=== PATIENT | female | born 1980 | race Caucasian/White ===

== ENCOUNTER 2017-03-27 15:30 | Outpatient (CLI) | payer SELFPAY | END 2017-03-27 15:45 | disposition home or self-care (01) | LOC: RT.N 15:30 | PROVIDERS: ATTEND Family Medicine | DX: R00.2 Palpitations (principal) | CPT/HCPCS: 93005 ==

== ENCOUNTER 2017-10-23 10:22 | Emergency (ER) | payer SELFPAY ==
[2017-10-23 11:26] LABS: BASOPHILS % (AUTO) 0.5 %; EOSINOPHILS % (AUTO) 0.1 %; HGB - HEMOGLOBIN 14.9 g/dL (12.0-16.0); LYMPHOCYTES # (AUTO) 0.5 10^3/uL (1.5-3.5); LYMPHOCYTES % (AUTO) 9.2 %; MEAN CORPUSCULAR HEMOGLOBIN 34.7 pg (27.0-31.0); MEAN CORPUSCULAR HGB CONC 33.8 g/dL (32.0-36.0); MEAN CORPUSCULAR VOLUME 102.7 fL (81.0-99.0); MEAN PLATELET VOLUME 7.4 fL (7.9-10.8); MONOCYTES # (AUTO) 0.3 10^3/uL (0.0-1.0); MONOCYTES % (AUTO) 5.8 %; NEUTROPHILS # (AUTO) 4.9 10^3/uL (1.5-6.6); NEUTROPHILS % (AUTO) 84.4 %; PLT - PLATELET COUNT 211 10^3/uL (130-450); RED BLOOD COUNT 4.28 10^6/uL (4.20-5.40); RED CELL DISTRIBUTION WIDTH 13.4 % (12.0-15.0); WHITE BLOOD COUNT 5.8 x10^3/uL (4.8-10.8)
[2017-10-23 11:43] LABS: ALBUMIN 4.7 g/dL (3.2-5.5); ALBUMIN/GLOBULIN RATIO 1.5 (1.0-2.2); CALCIUM 8.3 mg/dL (8.5-10.3); CREATININE 0.5 mg/dL (0.4-1.0); TOTAL PROTEIN 7.9 g/dL (6.7-8.2)
[2017-10-23 11:54] LABS: MUDS CUTOFF CONCENTRATIONS CUTOFF CONC BELOW:
[2017-10-23 12:00] LABS: BILIRUBIN,URINE NEGATIVE (NEGATIVE); GLUCOSE, URINE (UA) NEGATIVE (NEGATIVE); KETONES,URINE (UA) 40 mg/dL (NEGATIVE); LEUKOCYTE ESTERASE, URINE NEGATIVE (NEGATIVE); NITRITE,URINE NEGATIVE (NEGATIVE); OCCULT BLOOD,URINE SMALL (NEGATIVE); PH,URINE 5.5 PH (5.0-7.5); PROTEIN,URINE NEGATIVE (NEGATIVE); UROBILINOGEN,URINE 0.2 (NORMAL) E.U./dL (NORMAL)
[2017-10-23 12:05] LABS: CLARITY,URINE CLEAR (CLEAR); HCG UR QUAL NEGATIVE
[2017-10-23 12:11] LABS: AMPHETAMINE SCREEN,URINE NEGATIVE (NEGATIVE); BENZODIAZEPINES SCREEN, URINE NEGATIVE (NEGATIVE); COCAINE SCREEN URINE NEGATIVE (NEGATIVE); METHADONE SCREEN, URINE NEGATIVE (NEGATIVE); METHAMPHETAMINES SCREEN, URINE NEGATIVE (NEGATIVE); OPIATE SCREEN, URINE NEGATIVE (NEGATIVE); OXYCODONE SCREEN, URINE NEGATIVE (NEGATIVE); PROPOXYPHENE SCREEN, URINE NEGATIVE (NEGATIVE); TRICYCLIC ANTIDEPRESSANT,URINE NEGATIVE (NEGATIVE)
[2017-10-23 12:17] LABS: BACTERIA,URINE Few /HPF (None Seen); RBC,URINE 0-5 /HPF (0-5); SQUAMOUS EPITHELIAL CELL,UR MANY Squamous (<= Few)
[2017-10-23] MEDS ORDERED: THIAMINE INJ 100 MG in SODIUM CHLORIDE 0.9% 50 ML IV STA (12:25)
[2017-10-23] MEDS ORDERED: D5NS W/20 MEQ KCL 1,000 ML IV STA (12:25)
[2017-10-23] MEDS ORDERED: MAGNESIUM SULFATE 2 GRAM 2 GM/50 ML BAG IV ONE (12:25)
[2017-10-23] MEDS ORDERED: LORazepam 2 MG/ML VIAL IVP STA (12:25)
--- NOTE | 2017-10-23 12:27 | ED Physician Documentation ---
History of Present Illness - Stated complaint Stated Complaint: SOA - Chief complaint Chief Complaint: Resp - History obtained from History obtained from: Patient, Family () - History of Present Illness Timing: Today (37-year-old woman has been drinking heavily in long time. She drinks about 9-10 tall boy beers a night. She has been trying to cut back to drink a little heavier than normal yesterday and today feels very weak and dizzy and shaky and chilled. She denies any pain or vomiting. She has never been treated for alcoholism.) Review of Systems Ten Systems: 10 systems reviewed and negative Constitutional: reports: Chills, Fatigue. denies: Fever Throat: denies: Dental pain / toothache, Sore throat Cardiac: denies: Chest pain / pressure, Palpitations Respiratory: denies: Dyspnea, Cough PD PAST MEDICAL HISTORY - Past Medical History Past Medical History: No - Past Surgical History Past Surgical History: No - Present Medications Home Medications: Ambulatory Orders Medication Instructions Recorded Confirmed Citalopram [CeleXA] 10 mg PO DAILY 10/23/17 10/23/17 - Allergies Allergies/Adverse Reactions: Allergies Allergy/AdvReac Type Severity Reaction Status Date / Time No Known Drug Allergies Allergy Verified 10/23/17 10:31 - Social History Does the pt smoke?: Yes Smoking Status: Current some day smoker Does the pt drink ETOH?: Yes Does the pt have substance abuse?: No - Family History Family history: reports: Non contributory - Immunizations Immunizations are current?: Yes PD ED PE NORMAL - Vitals Vital signs reviewed: Yes - General General: Alert and oriented X 3, Other (Despite having alcohol level of 180, she is actually quite shaky and hypervigilant.) - HEENT HEENT: PERRL, EOMI - Neck Neck: Supple, no meningeal sign, No bony TTP - Cardiac Cardiac: RRR, No murmur - Respiratory Respiratory: No respiratory distress, Clear bilaterally - Abdomen Abdomen: Normal bowel sounds, Soft, Non tender - Back Back: No CVA TTP, No spinal TTP - Derm Derm: Normal color, Warm and dry - Extremities Extremities: No edema, No calf tenderness / cord - Neuro Neuro: Alert and oriented X 3, Normal speech Results - Vitals Vitals: Vital Signs - 24 hr 10/23/17 10:24 Temperature 35.5 C L Heart Rate 78 Respiratory 16 Rate Blood Pressure 123/65 O2 Saturation 99 Oxygen O2 Source Room air - Labs Labs: Laboratory Tests 10/23/17 10/23/17 10/23/17 11:00 11:00 11:17 WBC RBC Hgb Hct MCV MCH MCHC RDW Plt Count MPV Neut # Lymph # [place] # Eos # Baso # Absolute Nucleated RBC Nucleated RBC % VBG pH VBG pCO2 VBG pO2 VBG HCO3 VBG Total CO2 VBG O2 Saturation VBG Base Excess Sodium 135 Potassium 3.8 Chloride 101 Carbon Dioxide 17 L Anion Gap 17.0 H BUN 11 Creatinine 0.5 Estimated GFR (MDRD) 140 Glucose 68 L Calcium 8.3 L Total Bilirubin 1.0 AST 191 H ALT 154 H Alkaline Phosphatase 50 Total Protein 7.9 Albumin 4.7 Globulin 3.2 Albumin/Globulin Ratio 1.5 Lipase 25 Urine Color YELLOW Urine Clarity CLEAR Urine pH 5.5 Ur Specific [place] 1.025 Urine Protein NEGATIVE Urine Glucose (UA) NEGATIVE Urine Ketones 40 H Urine Occult Blood SMALL H Urine Nitrite NEGATIVE Urine Bilirubin NEGATIVE Urine Urobilinogen 0.2 (NORMAL) Ur Leukocyte Esterase NEGATIVE Urine RBC 0-5 Urine WBC 0-3 Ur Squamous Epith Cells MANY Squamous H Urine Bacteria Few Ur Microscopic Review INDICATED Urine Culture Comments NOT INDICATED Urine HCG, Qual NEGATIVE Urine Opiates Screen NEGATIVE Ur Oxycodone Screen NEGATIVE Urine Methadone Screen NEGATIVE Ur Propoxyphene Screen NEGATIVE Ur Barbiturates Screen NEGATIVE Ur Tricyclics Screen NEGATIVE Ur Phencyclidine Scrn NEGATIVE Ur Amphetamine Screen NEGATIVE U Methamphetamines Scrn NEGATIVE U Benzodiazepines Scrn NEGATIVE Urine Cocaine Screen NEGATIVE U Cannabinoids Screen POSITIVE H Ethyl Alcohol 184.6 Serum Ketones 10/23/17 10/23/17 10/23/17 11:17 11:17 12:44 WBC 5.8 RBC 4.28 Hgb 14.9 Hct 44.0 MCV 102.7 H MCH 34.7 H MCHC 33.8 RDW 13.4 Plt Count 211 MPV 7.4 L Neut # 4.9 Lymph # 0.5 L [place] # 0.3 Eos # 0.0 Baso # 0.0 Absolute Nucleated RBC 0.00 Nucleated RBC % 0.0 VBG pH 7.390 VBG pCO2 31.4 L VBG pO2 73.7 H VBG HCO3 18.6 L VBG Total CO2 19.5 L VBG O2 Saturation 93.9 H VBG Base Excess -5.2 L Sodium Potassium Chloride Carbon Dioxide Anion Gap BUN Creatinine Estimated GFR (MDRD) Glucose Calcium Total Bilirubin AST ALT Alkaline Phosphatase Total Protein Albumin Globulin Albumin/Globulin Ratio Lipase Urine Color Urine Clarity Urine pH Ur Specific [place] Urine Protein Urine Glucose (UA) Urine Ketones Urine Occult Blood Urine Nitrite Urine Bilirubin Urine Urobilinogen Ur Leukocyte Esterase Urine RBC Urine WBC Ur Squamous Epith Cells Urine Bacteria Ur Microscopic Review Urine Culture Comments Urine HCG, Qual Urine Opiates Screen Ur Oxycodone Screen Urine Methadone Screen Ur Propoxyphene Screen Ur Barbiturates Screen Ur Tricyclics Screen Ur Phencyclidine Scrn Ur Amphetamine Screen U Methamphetamines Scrn U Benzodiazepines Scrn Urine Cocaine Screen U Cannabinoids Screen Ethyl Alcohol Serum Ketones NEGATIVE PD MEDICAL DECISION MAKING - ED course ED course: 37-year-old woman presents in modest alcohol withdrawal with a measurable alcohol level. She was much more comfortable calm after IV fluids and 2 mg of Ativan. With the help of the manager social responsibility, we arranged for a bed at [facility] today and her will drive her there. Departure - Departure Disposition: 01 Home, Self Care Clinical Impression: Alcohol withdrawal Condition: Good Record reviewed to determine appropriate education?: Yes Instructions: ED Withdrawal Alcohol Comments: Go directly to the [facility] detox facility as we have arranged.
[2017-10-23] MEDS ORDERED: THIAMINE INJ 100 MG in SODIUM CHLORIDE 0.9% 50 ML IV SCH (12:43)
[2017-10-23 12:50] LABS: VBG PCO2 31.4 mmHg (41-51); VBG PH 7.39 (7.31-7.41)
[2017-10-23 12:51] LABS: VBG BASE EXCESS -5.2 mmol/L (-2 - +2); VBG PO2 73.7 mmHg (25-47); VBG TOTAL CO2 19.5 mmol/L (24-29)
[2017-10-23 15:06] VITALS: BP 117/81
== END 2017-10-23 16:10 | disposition home or self-care (01) ==
LOC: ED 10:22
DX: F10.239 Alcohol dependence with withdrawal, unspecified (principal); Y90.6 Blood alcohol level of 120-199 mg/100 ml; F17.200 Nicotine dependence, unspecified, uncomplicated
CPT/HCPCS: 36415; 80053; 80306; 80320; 81001; 81025; 82009; 82803; 83690; 85025; 96365; 96368; 96375; 99283; 99284; J2060; J3411; J7040; 81003; 87086

== ENCOUNTER 2018-08-11 12:17 | Emergency (ER) | payer SELFPAY ==
[2018-08-11 12:48] VITALS: BP 114/84
--- NOTE | 2018-08-11 14:46 | ED Physician Documentation ---
History of Present Illness - Stated complaint Stated Complaint: WITHDRAWL/SHAKING - Chief complaint Chief Complaint: MHE - History obtained from History obtained from: Patient - Additonal information Additional information: Patient is a 38-year-old female with history of alcohol and marijuana use presenting with request for medication to accompany her to her crisis center for alcohol detoxification later tonight. Patient has been already arranged and is driving her. Patient reports last drink was approximately 2 hours ago and complains of dry heaving, as well as generalized abdominal pain worse in the epigastric area, but denies fever, hallucinations, headache, difficulty breathing, shakes, actual vomiting, urinary or stool changes. Patient denies other recreational drug use. Patient denies any suicidal or homicidal ideation. Review of Systems Constitutional: denies: Fever Respiratory: denies: Dyspnea PD PAST MEDICAL HISTORY - Past Medical History Psych: Anxiety - Past Surgical History Past Surgical History: No - Present Medications Home Medications: Ambulatory Orders Medication Instructions Recorded Confirmed Citalopram [CeleXA] 10 mg PO DAILY 10/23/17 08/11/18 Lorazepam [Ativan] 1 mg PO TID PRN #15 tablet 10/23/17 08/11/18 hydrOXYzine PAMOATE [Vistaril] 25 mg PO Q6H PRN #15 capsule 10/23/17 08/11/18 chlordiazePOXIDE [Librium] 25 mg PO Q6H #16 capsule 08/11/18 - Allergies Allergies/Adverse Reactions: Allergies Allergy/AdvReac Type Severity Reaction Status Date / Time No Known Drug Allergies Allergy Verified 08/11/18 12:48 - Social History Does the pt smoke?: Yes Smoking Status: Current every day smoker Does the pt drink ETOH?: Yes Does the pt have substance abuse?: No - Immunizations Immunizations are current?: Yes PD ED PE NORMAL - General General: Alert and oriented X 3, No acute distress, Well developed/nourished, Other (Somewhat tearful, non-slurring of words) - HEENT HEENT: Atraumatic, Moist mucous membranes, Pharynx benign - Cardiac Cardiac: RRR, No murmur - Respiratory Respiratory: No respiratory distress, Clear bilaterally - Abdomen Abdomen: Normal bowel sounds, Soft, Non distended. No: Non tender (Mild epigastric discomfort) - Derm Derm: Normal color, Warm and dry, No rash - Extremities Extremities: No deformity - Neuro Neuro: Alert and oriented X 3, No motor deficit, No sensory deficit - Psych Psych: Other (Denies suicidal ideation) Results - Vitals Vitals: Vital Signs - 24 hr 08/11/18 12:40 Temperature 36.1 C L Heart Rate 87 Respiratory 16 Rate Blood Pressure 114/84 H O2 Saturation 97 Oxygen O2 Source Room air PD MEDICAL DECISION MAKING - ED course Complexity details: considered differential, d/w patient ED course: Patient is requesting medication to assist with alcohol withdrawal so that she may attend the [facility] detox program later today. Patient has been waiting for the past several days for a bed opening and has secured one for later today. Patient reports that that she will be monitored completely at this facility and is driving her there. Patient's last drink was several hours ago and she is not experiencing acute withdrawal symptoms such as delirium tremens, seizure activity, or other that would require urgent testing, medication administration, or admission from the ER. Feel that Librium taper is appropriate to dispense at this time. Remainder of physical exam is relatively unremarkable. Do not have concern for suicidality at this time. Feel that she is appropriate to discharge and discussed return precautions, use medications, and appropriate follow-up. Departure - Departure Disposition: 01 Home, Self Care Clinical Impression: Alcoholic intoxication Qualifiers: Complication of substance-induced condition: uncomplicated Qualified Code(s): F10.920 - Alcohol use, unspecified with intoxication, uncomplicated Condition: Good Instructions: ED Alcohol Intoxication Follow-Up: Dino Kidd PA-C [Primary Care Provider] - Within 3 Days Prescriptions: chlordiazePOXIDE [Librium] 25 mg PO Q6H #16 capsule Comments: Please go directly to [facility]. Please follow-up with primary care physician in next 2-3 days. Refrain from alcohol, tobacco, and other recreational drugs. May take Librium while at crisis center and being monitored to help with alcohol withdrawal symptoms. Return to ED sooner if experience withdrawal symptoms, as well as any other concerns.
== END 2018-08-11 15:18 | disposition home or self-care (01) ==
LOC: ED 12:17
DX: F10.920 Alcohol use, unspecified with intoxication, uncomplicated (principal); F12.90 Cannabis use, unspecified, uncomplicated; F17.200 Nicotine dependence, unspecified, uncomplicated
CPT/HCPCS: 99283

== ENCOUNTER 2019-10-11 14:55 | Emergency (ER) | payer OTHER ==
[2019-10-11 16:18] LABS: BASOPHILS % (AUTO) 0.4 %; EOSINOPHILS % (AUTO) 0.5 %; HGB - HEMOGLOBIN 14.2 g/dL (12.0-16.0); LYMPHOCYTES % (AUTO) 17.6 %; MEAN CORPUSCULAR HEMOGLOBIN 34.6 pg (27.0-31.0); MEAN CORPUSCULAR HGB CONC 34.7 g/dL (32.0-36.0); MEAN CORPUSCULAR VOLUME 99.8 fL (81.0-99.0); MEAN PLATELET VOLUME 9.9 fL (7.9-10.8); MONOCYTES # (AUTO) 0.6 10^3/uL (0.0-1.0); MONOCYTES % (AUTO) 11.4 %; NEUTROPHILS # (AUTO) 3.9 10^3/uL (1.5-6.6); NEUTROPHILS % (AUTO) 69.7 %; PLT - PLATELET COUNT 173 10^3/uL (130-450); RED CELL DISTRIBUTION WIDTH 12.5 % (12.0-15.0); WHITE BLOOD COUNT 5.6 x10^3/uL (4.8-10.8)
[2019-10-11 16:31] LABS: ALBUMIN 4.9 g/dL (3.2-5.5); ALBUMIN/GLOBULIN RATIO 1.3 (1.0-2.2); CREATININE 0.6 mg/dL (0.4-1.0); TOTAL PROTEIN 8.6 g/dL (6.7-8.2)
--- NOTE | 2019-10-11 17:58 | ED Physician Documentation ---
History of Present Illness - Stated complaint Stated Complaint: ETOH WITHDRAWL - Chief complaint Chief Complaint: Abd Pain - History obtained from History obtained from: Patient (This is a very pleasant 39-year-old woman who presents in alcohol withdrawal requesting help with same. She was in detox last year and actually was sober for several months. Over the last 8 months though she has been drinking heavily, mostly beer. She presents to having had her last drink yesterday and visibly shaking. She denies hallucinations or headache. She is never had a seizure.) Review of Systems Constitutional: reports: Reviewed and negative Nose: reports: Reviewed and negative Throat: reports: Reviewed and negative Cardiac: reports: Reviewed and negative Respiratory: reports: Reviewed and negative PD PAST MEDICAL HISTORY - Past Medical History Psych: Anxiety - Past Surgical History Past Surgical History: No - Present Medications Home Medications: Ambulatory Orders Medication Instructions Recorded Confirmed Citalopram [CeleXA] 10 mg PO DAILY 10/23/17 08/11/18 Lorazepam [Ativan] 1 mg PO TID PRN #15 tablet 10/23/17 08/11/18 hydrOXYzine PAMOATE [Vistaril] 25 mg PO Q6H PRN #15 capsule 10/23/17 08/11/18 chlordiazePOXIDE [Librium] 25 mg PO Q6H #16 capsule 08/11/18 Gabapentin [Neurontin] 300 mg PO TID #60 capsule 10/11/19 Lorazepam [Ativan] 1 mg PO TID PRN #15 tablet 10/11/19 Ondansetron Odt [Zofran] 4 mg TL Q6H PRN #10 tablet 10/11/19 - Allergies Allergies/Adverse Reactions: Allergies Allergy/AdvReac Type Severity Reaction Status Date / Time No Known Drug Allergies Allergy Verified 10/11/19 15:16 - Social History Does the pt smoke?: Yes Smoking Status: Current every day smoker Does the pt drink ETOH?: Yes Does the pt have substance abuse?: No - Immunizations Immunizations are current?: Yes PD ED PE NORMAL - Vitals Vital signs reviewed: Yes - General General: Alert and oriented X 3, No acute distress, Other (Visibly shaky but alert and oriented) - Back Back: No CVA TTP, No spinal TTP - Derm Derm: Normal color, Warm and dry - Neuro Neuro: Alert and oriented X 3, Normal speech Results - Vitals Vitals: Vital Signs - 24 hr 10/11/19 15:17 Temperature 36.5 C Heart Rate 89 Respiratory 16 Rate Blood Pressure 156/110 H O2 Saturation 98 Oxygen O2 Source Room air - Labs Labs: Laboratory Tests 10/11/19 10/11/19 10/11/19 16:10 16:10 16:10 WBC 5.6 RBC 4.10 L Hgb 14.2 Hct 40.9 MCV 99.8 H MCH 34.6 H MCHC 34.7 RDW 12.5 Plt Count 173 MPV 9.9 Neut # (Auto) 3.9 Lymph # (Auto) 1.0 L [place] # (Auto) 0.6 Eos # (Auto) 0.0 Baso # (Auto) 0.0 Absolute Nucleated RBC 0.00 Nucleated RBC % 0.0 Sodium 137 Potassium 3.4 L Chloride 101 Carbon Dioxide 20 L Anion Gap 16.0 H BUN 8 Creatinine 0.6 Estimated GFR (MDRD) 112 Glucose 100 Calcium 10.0 Magnesium 2.0 Total Bilirubin 1.0 AST 92 H ALT 47 Alkaline Phosphatase 92 Total Protein 8.6 H Albumin 4.9 Globulin 3.7 Albumin/Globulin Ratio 1.3 Lipase 38 Ethyl Alcohol < 5.0 PD MEDICAL DECISION MAKING - ED course ED course: She is driving today, she is not intoxicated. She did not want any medications here, and was given prescriptions. Departure - Departure Disposition: 01 Home, Self Care Clinical Impression: Alcohol withdrawal Qualifiers: Complication of substance-induced condition: uncomplicated Qualified Code(s): F10.230 - Alcohol dependence with withdrawal, uncomplicated Condition: Good Record reviewed to determine appropriate education?: Yes Instructions: ED Withdrawal Alcohol Prescriptions: Gabapentin [Neurontin] 300 mg PO TID #60 capsule Lorazepam [Ativan] 1 mg PO TID PRN #15 tablet PRN Reason: Anxiety Ondansetron Odt [Zofran] 4 mg TL Q6H PRN #10 tablet PRN Reason: Nausea / Vomiting Comments: Do not drink or drive with the medications. Return for new or worsening symptoms. Talk with your insurance company tomorrow about options for inpatient treatment
[2019-10-11 18:02] VITALS: BP 151/107
== END 2019-10-11 18:03 | disposition home or self-care (01) ==
LOC: ED 14:55
DX: F10.230 Alcohol dependence with withdrawal, uncomplicated (principal); F17.200 Nicotine dependence, unspecified, uncomplicated
CPT/HCPCS: 36415; 80053; 80320; 83690; 83735; 85025; 99283

== ENCOUNTER 2020-05-15 09:42 | Emergency (ER) | payer SELFPAY ==
[2020-05-15] MEDS ORDERED: DEXAMETHASONE 10 MG/ML VIAL IVP STA (11:00)
[2020-05-15] MEDS ORDERED: FOLIC ACID INJ 1 MG, THIAMINE INJ 100 MG, MAGNESIUM SULFATE 2 GM, MULTIVITAMIN 10 ML in... IV STA ×5 (11:00)
[2020-05-15] MEDS ORDERED: LORazepam 2 MG/ML VIAL IVP STA ×2 (11:00→13:31)
--- NOTE | 2020-05-15 11:02 | ED Physician Documentation ---
History of Present Illness - Stated complaint Stated Complaint: ANXIETY - Chief complaint Chief Complaint: General - History obtained from History obtained from: Patient - History of Present Illness Timing: How many weeks ago (2) - Additonal information Additional information: 39-year-old alcoholic female is decided about 2 weeks ago she was in an attempt to do detox and she has been unsuccessful in doing this at home and she has set up inpatient detox to begin today. She has been asked by the detox center to come to the emergency department for medical clearance and she arrives here this this morning with a history of nausea and vomiting last night and she feels that she is in early withdrawal now. Review of Systems Constitutional: denies: Fever Eyes: denies: Decreased vision Ears: denies: Ear pain Nose: denies: Congestion Throat: denies: Sore throat Cardiac: denies: Chest pain / pressure, Palpitations Respiratory: denies: Dyspnea, Cough GI: reports: Nausea, Vomiting : denies: Dysuria, Frequency Skin: denies: Rash Musculoskeletal: denies: Neck pain, Back pain, Extremity pain PD PAST MEDICAL HISTORY - Past Medical History Cardiovascular: None Respiratory: None Neuro: None Endocrine/Autoimmune: None GI: None WIRE RIGGER: None : None HEENT: None Psych: Anxiety Musculoskeletal: None Derm: None - Past Surgical History Past Surgical History: No - Present Medications Home Medications: Ambulatory Orders Medication Instructions Recorded Confirmed Citalopram [CeleXA] 10 mg PO DAILY 10/23/17 05/15/20 Lorazepam [Ativan] 2 mg PO Q4HR PRN #14 tablet 05/15/20 - Allergies Allergies/Adverse Reactions: Allergies Allergy/AdvReac Type Severity Reaction Status Date / Time No Known Drug Allergies Allergy Verified 05/15/20 09:48 - Social History Does the pt smoke?: Yes Smoking Status: Current every day smoker Does the pt drink ETOH?: Yes ETOH Use: Beer Does the pt have substance abuse?: No - Immunizations Immunizations are current?: Yes - POLST Patient has POLST: No PD ED PE NORMAL - Vitals Vital signs reviewed: Yes (hypertensive ) - General General: Alert and oriented X 3, Well developed/nourished, Other (Appears shaky and is teary-eyed) - HEENT HEENT: Atraumatic, PERRL, EOMI - Neck Neck: Supple, no meningeal sign, No bony TTP - Cardiac Cardiac: No murmur, Other (tachy to 110) - Respiratory Respiratory: No respiratory distress, Clear bilaterally - Abdomen Abdomen: Normal bowel sounds, Soft, Non tender, Non distended, No organomegaly - Back Back: No CVA TTP, No spinal TTP - Derm Derm: Normal color, Warm and dry, No rash - Extremities Extremities: No deformity, No edema - Neuro Neuro: Alert and oriented X 3, ap operator 2-12 intact, No motor deficit, No sensory deficit, Normal speech Eye Opening: Spontaneous Motor: Obeys Commands Verbal: Oriented GCS Score: 15 - Psych Psych: Normal mood, Normal affect Results - Vitals Vitals: Vital Signs - 24 hr 05/15/20 05/15/20 05/15/20 09:46 11:52 13:44 Temperature 36.9 C 37.3 C Heart Rate 100 67 70 Respiratory 22 18 16 Rate Blood Pressure 137/107 H 134/98 H 146/100 H O2 Saturation 98 97 97 Oxygen O2 Source Room air - Labs Labs: Laboratory Tests 05/15/20 05/15/20 05/15/20 11:07 11:07 12:54 WBC 10.5 RBC 4.13 L Hgb 14.0 Hct 41.2 MCV 99.8 H MCH 33.9 H MCHC 34.0 RDW 12.7 Plt Count 184 MPV 9.0 Neut # (Auto) 8.7 H Lymph # (Auto) 1.0 L [place] # (Auto) 0.7 Eos # (Auto) 0.0 Baso # (Auto) 0.0 Absolute Nucleated RBC 0.00 Nucleated RBC % 0.0 Sodium 136 Potassium 3.9 Chloride 99 L Carbon Dioxide 20 L Anion Gap 17.0 H BUN 14 Creatinine 0.6 Estimated GFR (MDRD) 112 Glucose 96 Calcium 9.7 Total Bilirubin 1.1 H AST 49 H ALT 34 Alkaline Phosphatase 59 Total Protein 8.3 H Albumin 4.8 Globulin 3.5 Albumin/Globulin Ratio 1.4 Lipase 51 Urine Color Urine Clarity Urine pH Ur Specific [place] Urine Protein Urine Glucose (UA) Urine Ketones Urine Occult Blood Urine Nitrite Urine Bilirubin Urine Urobilinogen Ur Leukocyte Esterase Ur Microscopic Review Urine Culture Comments Urine HCG, Qual NEGATIVE Nasal Adenovirus (PCR) Nasal B. parapertussis DNA (PCR) Nasal Coronavir 229E PCR Nasal Coronavir HKU1 PCR Nasal Coronavir NL63 PCR Nasal Coronavir OC43 PCR Nasal Enterovir/Rhinovir PCR Nasal Influenza B PCR Nasal Influenza A PCR Nasal Parainfluen 1 PCR Nasal Parainfluen 2 PCR Nasal Parainfluen 3 PCR Nasal Parainfluen 4 PCR Nasal RSV (PCR) Nasal B.pertussis DNA PCR Nasal C.pneumoniae (PCR) Mil Human Metapneumo PCR Nasal M.pneumoniae (PCR) Nasal SARS-CoV-2 (PCR) Urine Opiates Screen Ur Oxycodone Screen Urine Methadone Screen Ur Propoxyphene Screen Ur Barbiturates Screen Ur Tricyclics Screen Ur Phencyclidine Scrn Ur Amphetamine Screen U Methamphetamines Scrn U Benzodiazepines Scrn Urine Cocaine Screen U Cannabinoids Screen Ethyl Alcohol < 5.0 05/15/20 05/15/20 13:00 13:35 WBC RBC Hgb Hct MCV MCH MCHC RDW Plt Count MPV Neut # (Auto) Lymph # (Auto) [place] # (Auto) Eos # (Auto) Baso # (Auto) Absolute Nucleated RBC Nucleated RBC % Sodium Potassium Chloride Carbon Dioxide Anion Gap BUN Creatinine Estimated GFR (MDRD) Glucose Calcium Total Bilirubin AST ALT Alkaline Phosphatase Total Protein Albumin Globulin Albumin/Globulin Ratio Lipase Urine Color YELLOW Urine Clarity CLEAR Urine pH 6.5 Ur Specific [place] 1.010 Urine Protein NEGATIVE Urine Glucose (UA) NEGATIVE Urine Ketones TRACE Urine Occult Blood TRACE-INTA Urine Nitrite NEGATIVE Urine Bilirubin NEGATIVE Urine Urobilinogen 0.2 (NORMAL) Ur Leukocyte Esterase NEGATIVE Ur Microscopic Review NOT INDICATED Urine Culture Comments NOT INDICATED Urine HCG, Qual Nasal Adenovirus (PCR) NOT DETECTED Nasal B. parapertussis DNA (PCR) NOT DETECTED Nasal Coronavir 229E PCR NOT DETECTED Nasal Coronavir HKU1 PCR NOT DETECTED Nasal Coronavir NL63 PCR NOT DETECTED Nasal Coronavir OC43 PCR NOT DETECTED Nasal Enterovir/Rhinovir PCR NOT DETECTED Nasal Influenza B PCR NOT DETECTED Nasal Influenza A PCR NOT DETECTED Nasal Parainfluen 1 PCR NOT DETECTED Nasal Parainfluen 2 PCR NOT DETECTED Nasal Parainfluen 3 PCR NOT DETECTED Nasal Parainfluen 4 PCR NOT DETECTED Nasal RSV (PCR) NOT DETECTED Nasal B.pertussis DNA PCR NOT DETECTED Nasal C.pneumoniae (PCR) NOT DETECTED Mil Human Metapneumo PCR NOT DETECTED Nasal M.pneumoniae (PCR) NOT DETECTED Nasal SARS-CoV-2 (PCR) NOT DETECTED Urine Opiates Screen NEGATIVE Ur Oxycodone Screen NEGATIVE Urine Methadone Screen NEGATIVE Ur Propoxyphene Screen NEGATIVE Ur Barbiturates Screen NEGATIVE Ur Tricyclics Screen NEGATIVE Ur Phencyclidine Scrn NEGATIVE Ur Amphetamine Screen NEGATIVE U Methamphetamines Scrn NEGATIVE U Benzodiazepines Scrn NEGATIVE Urine Cocaine Screen POSITIVE H U Cannabinoids Screen POSITIVE H Ethyl Alcohol PD MEDICAL DECISION MAKING - ED course Complexity details: reviewed old records, reviewed results, re-evaluated patient, considered differential, d/w patient ED course: 39-year-old alcoholic female detoxing from alcohol has an appointment to go see the detox center at [facility] today she is here for medical clearance she is administered a banana bag dexamethasone and Ativan and feels much improved. Departure - Departure Disposition: Home, Self Care Clinical Impression: Alcohol withdrawal Qualifiers: Complication of substance-induced condition: with perceptual disturbance Qualified Code(s): F10.232 - Alcohol dependence with withdrawal with perceptual disturbance Condition: Stable Instructions: ED Withdrawal Alcohol Follow-Up: [facility] [Provider Group] Prescriptions: Lorazepam [Ativan] 2 mg PO Q4HR PRN #14 tablet PRN Reason: withdrawal symptoms Comments: Follow up with [facility] Detox as planned when you leave here. Discharge Date/Time: 05/15/20 13:56
[2020-05-15 11:19] LABS: BASOPHILS % (AUTO) 0.4 %; EOSINOPHILS % (AUTO) 0.1 %; LYMPHOCYTES % (AUTO) 9.3 %; MEAN CORPUSCULAR HEMOGLOBIN 33.9 pg (27.0-31.0); MEAN CORPUSCULAR VOLUME 99.8 fL (81.0-99.0); MONOCYTES # (AUTO) 0.7 10^3/uL (0.0-1.0); MONOCYTES % (AUTO) 6.6 %; NEUTROPHILS # (AUTO) 8.7 10^3/uL (1.5-6.6); NEUTROPHILS % (AUTO) 83.2 %; PLT - PLATELET COUNT 184 10^3/uL (130-450); RED BLOOD COUNT 4.13 10^6/uL (4.20-5.40); RED CELL DISTRIBUTION WIDTH 12.7 % (12.0-15.0); WHITE BLOOD COUNT 10.5 x10^3/uL (4.8-10.8)
[2020-05-15 11:31] LABS: ALBUMIN 4.8 g/dL (3.2-5.5); ALBUMIN/GLOBULIN RATIO 1.4 (1.0-2.2); ALKALINE PHOSPHATASE 59 IU/L (42-121); ALT ALANINE AMINOTRANSFERASE 34 IU/L (10-60); AST ASPARTATE AMINOTRANSFERASE 49 IU/L (10-42); BILIRUBIN,TOTAL 1.1 mg/dL (0.2-1.0); BUN - BLOOD UREA NITROGEN 14 mg/dL (6-20); CALCIUM 9.7 mg/dL (8.5-10.3); CARBON DIOXIDE - CO2 20 mmol/L (21-32); CHLORIDE 99 mmol/L (101-111); CREATININE 0.6 mg/dL (0.4-1.0); GLUCOSE 96 mg/dL (70-100); LIPASE 51 U/L (22-51); SODIUM 136 mmol/L (135-145); TOTAL PROTEIN 8.3 g/dL (6.7-8.2)
[2020-05-15 13:05] LABS: MUDS CUTOFF CONCENTRATIONS CUTOFF CONC BELOW:
[2020-05-15 13:08] LABS: BILIRUBIN,URINE NEGATIVE (NEGATIVE); GLUCOSE, URINE (UA) NEGATIVE (NEGATIVE); KETONES,URINE (UA) TRACE mg/dL (NEGATIVE); LEUKOCYTE ESTERASE, URINE NEGATIVE (NEGATIVE); NITRITE,URINE NEGATIVE (NEGATIVE); OCCULT BLOOD,URINE TRACE-INTA (NEGATIVE); PH,URINE 6.5 PH (5.0-7.5); PROTEIN,URINE NEGATIVE (NEGATIVE); UROBILINOGEN,URINE 0.2 (NORMAL) E.U./dL (NORMAL)
[2020-05-15 13:09] LABS: CLARITY,URINE CLEAR (CLEAR)
[2020-05-15 13:23] LABS: AMPHETAMINE SCREEN,URINE NEGATIVE (NEGATIVE); BENZODIAZEPINES SCREEN, URINE NEGATIVE (NEGATIVE); COCAINE SCREEN URINE POSITIVE (NEGATIVE); METHADONE SCREEN, URINE NEGATIVE (NEGATIVE); METHAMPHETAMINES SCREEN, URINE NEGATIVE (NEGATIVE); OPIATE SCREEN, URINE NEGATIVE (NEGATIVE); OXYCODONE SCREEN, URINE NEGATIVE (NEGATIVE); PROPOXYPHENE SCREEN, URINE NEGATIVE (NEGATIVE); TRICYCLIC ANTIDEPRESSANT,URINE NEGATIVE (NEGATIVE)
[2020-05-15 13:37] LABS: HCG UR QUAL NEGATIVE
[2020-05-15 13:45] VITALS: BP 146/100
[2020-05-15 14:45] LABS: C. PNEUMONIAE- RESP PCR PANEL NOT DETECTED
== END 2020-05-15 13:56 | disposition home or self-care (01) ==
LOC: ED 09:42
DX: Z02.2 Encounter for examination for admission to residential institution (principal); F10.232 Alcohol dependence with withdrawal with perceptual disturbance; F17.200 Nicotine dependence, unspecified, uncomplicated; Z20.828 Contact with and (suspected) exposure to other viral communicable diseases
CPT/HCPCS: 0202U; 36415; 80053; 80306; 80320; 81003; 81025; 83690; 85025; 96365; 96375; 96376; 99284; J2060; J3411; 81001; 87086

== ENCOUNTER 2020-08-08 08:07 | Emergency (ER) | payer MEDICAID ==
[2020-08-08] MEDS ORDERED: SODIUM CHLORIDE 0.9% 1,000 ML IV STA (08:20)
[2020-08-08] MEDS ORDERED: THIAMINE INJ 100 MG in SODIUM CHLORIDE 0.9% 50 ML IV STA (08:20)
[2020-08-08] MEDS ORDERED: ONDANSETRON 4 MG/2 ML VIAL IVP STA (08:20)
[2020-08-08] MEDS ORDERED: LORazepam 2 MG/ML VIAL IVP STA (08:22)
--- NOTE | 2020-08-08 08:22 | ED Physician Documentation ---
History of Present Illness - Stated complaint Stated Complaint: ALOC - Chief complaint Chief Complaint: General - History obtained from History obtained from: Patient (Last drink 2 days ago, now she is having severe withdrawal. Mild hallucinations, quite shaky, nauseous and diarrhea. 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 : None HEENT: None Psych: Anxiety Musculoskeletal: None Derm: None - Past Surgical History Past Surgical History: No - Present Medications Home Medications: Ambulatory Orders Medication Instructions Recorded Confirmed Citalopram [CeleXA] 10 mg PO DAILY 10/23/17 08/08/20 Lorazepam [Ativan] 2 mg PO TID #9 tablet 08/08/20 traZODone [Desyrel] 50 mg PO HS PRN 08/08/20 08/08/20 - Allergies Allergies/Adverse Reactions: Allergies Allergy/AdvReac Type Severity Reaction Status Date / Time No Known Drug Allergies Allergy Verified 08/08/20 08:09 - Social History Does the pt smoke?: Yes Smoking Status: Current every day smoker Does the pt drink ETOH?: Yes Does the pt have substance abuse?: No - Immunizations Immunizations are current?: Yes - POLST Patient has POLST: No PD ED PE NORMAL - Vitals Vital signs reviewed: Yes - General General: Alert and oriented X 3, Other (shaky, tachycardic) - HEENT HEENT: PERRL, EOMI - Neck Neck: Supple, no meningeal sign, No bony TTP - Cardiac Cardiac: RRR, No murmur - Respiratory Respiratory: No respiratory distress, Clear bilaterally - Abdomen Abdomen: Soft, Non tender - Back Back: No CVA TTP, No spinal TTP - Derm Derm: Normal color, Warm and dry - Extremities Extremities: No edema, No calf tenderness / cord - Neuro Neuro: Alert and oriented X 3, Normal speech Results - Vitals Vitals: Vital Signs - 24 hr 08/08/20 08/08/20 08/08/20 08:10 08:37 10:14 Temperature 36.8 C 36.8 C Heart Rate 122 H 118 H 90 Respiratory 22 21 20 Rate Blood Pressure 169/79 H 163/83 H 135/79 H O2 Saturation 96 99 99 08/08/20 08/08/20 11:07 13:15 Temperature 36.9 C Heart Rate 90 80 Respiratory 18 18 Rate Blood Pressure 143/101 H 134/93 H O2 Saturation 99 99 Oxygen O2 Source Room air - Labs Labs: Laboratory Tests 08/08/20 08/08/20 08/08/20 08:25 08:40 08:40 WBC 13.9 H RBC 3.66 L Hgb 12.9 Hct 37.3 MCV 101.9 H MCH 35.2 H MCHC 34.6 RDW 15.6 H Plt Count 254 MPV 9.4 Neut # (Auto) 10.2 H Lymph # (Auto) 2.4 [place] # (Auto) 1.1 H Eos # (Auto) 0.0 Baso # (Auto) 0.1 Absolute Nucleated RBC 0.00 Nucleated RBC % 0.0 Sodium 137 Potassium 3.4 L Chloride 100 L Carbon Dioxide 18 L Anion Gap 19.0 H BUN 10 Creatinine 0.8 Estimated GFR (MDRD) 80 L Glucose 118 H Calcium 9.3 Total Bilirubin 1.5 H AST 44 H ALT 28 Alkaline Phosphatase 69 Total Protein 8.2 Albumin 4.7 Globulin 3.5 Albumin/Globulin Ratio 1.3 Lipase 22 TSH Urine Color YELLOW Urine Clarity CLEAR Urine pH 5.5 Ur Specific [place] 1.025 Urine Protein NEGATIVE Urine Glucose (UA) NEGATIVE Urine Ketones 15 H Urine Occult Blood TRACE-INTA Urine Nitrite NEGATIVE Urine Bilirubin NEGATIVE Urine Urobilinogen 0.2 (NORMAL) Ur Leukocyte Esterase NEGATIVE Ur Microscopic Review NOT INDICATED Urine Culture Comments NOT INDICATED Urine HCG, Qual NEGATIVE Nasal Adenovirus (PCR) Nasal B. parapertussis DNA (PCR) Nasal Coronavir 229E PCR Nasal Coronavir HKU1 PCR Nasal Coronavir NL63 PCR Nasal Coronavir OC43 PCR Nasal Enterovir/Rhinovir PCR Nasal Influenza B PCR Nasal Influenza A PCR Nasal Parainfluen 1 PCR Nasal Parainfluen 2 PCR Nasal Parainfluen 3 PCR Nasal Parainfluen 4 PCR Nasal RSV (PCR) Nasal B.pertussis DNA PCR Nasal C.pneumoniae (PCR) Mil Human Metapneumo PCR Nasal M.pneumoniae (PCR) Nasal SARS-CoV-2 (PCR) Salicylates < 6.0 Urine Opiates Screen NEGATIVE Ur Oxycodone Screen NEGATIVE Urine Methadone Screen NEGATIVE Ur Propoxyphene Screen NEGATIVE Acetaminophen < 10 L Ur Barbiturates Screen NEGATIVE Ur Tricyclics Screen NEGATIVE Ur Phencyclidine Scrn NEGATIVE Ur Amphetamine Screen NEGATIVE U Methamphetamines Scrn NEGATIVE U Benzodiazepines Scrn POSITIVE H Urine Cocaine Screen NEGATIVE U Cannabinoids Screen POSITIVE H Ethyl Alcohol < 5.0 08/08/20 08/08/20 08:40 09:55 WBC RBC Hgb Hct MCV MCH MCHC RDW Plt Count MPV Neut # (Auto) Lymph # (Auto) [place] # (Auto) Eos # (Auto) Baso # (Auto) Absolute Nucleated RBC Nucleated RBC % Sodium Potassium Chloride Carbon Dioxide Anion Gap BUN Creatinine Estimated GFR (MDRD) Glucose Calcium Total Bilirubin AST ALT Alkaline Phosphatase Total Protein Albumin Globulin Albumin/Globulin Ratio Lipase TSH 3.63 Urine Color Urine Clarity Urine pH Ur Specific [place] Urine Protein Urine Glucose (UA) Urine Ketones Urine Occult Blood Urine Nitrite Urine Bilirubin Urine Urobilinogen Ur Leukocyte Esterase Ur Microscopic Review Urine Culture Comments Urine HCG, Qual Nasal Adenovirus (PCR) NOT DETECTED Nasal B. parapertussis DNA (PCR) NOT DETECTED Nasal Coronavir 229E PCR NOT DETECTED Nasal Coronavir HKU1 PCR NOT DETECTED Nasal Coronavir NL63 PCR NOT DETECTED Nasal Coronavir OC43 PCR NOT DETECTED Nasal Enterovir/Rhinovir PCR NOT DETECTED Nasal Influenza B PCR NOT DETECTED Nasal Influenza A PCR NOT DETECTED Nasal Parainfluen 1 PCR NOT DETECTED Nasal Parainfluen 2 PCR NOT DETECTED Nasal Parainfluen 3 PCR NOT DETECTED Nasal Parainfluen 4 PCR NOT DETECTED Nasal RSV (PCR) NOT DETECTED Nasal B.pertussis DNA PCR NOT DETECTED Nasal C.pneumoniae (PCR) NOT DETECTED Mil Human Metapneumo PCR NOT DETECTED Nasal M.pneumoniae (PCR) NOT DETECTED Nasal SARS-CoV-2 (PCR) NOT DETECTED Salicylates Urine Opiates Screen Ur Oxycodone Screen Urine Methadone Screen Ur Propoxyphene Screen Acetaminophen Ur Barbiturates Screen Ur Tricyclics Screen Ur Phencyclidine Scrn Ur Amphetamine Screen U Methamphetamines Scrn U Benzodiazepines Scrn Urine Cocaine Screen U Cannabinoids Screen Ethyl Alcohol PD MEDICAL DECISION MAKING - ED course ED course: 40-year-old woman presents with alcohol withdrawal. Her symptoms were relatively easy to treat with a milligram of Ativan IV. She is medically stable for detox and other evaluation. Departure - Departure Disposition: 01 Home, Self Care Clinical Impression: Alcohol withdrawal Qualifiers: Complication of substance-induced condition: with perceptual disturbance Qualified Code(s): F10.232 - Alcohol dependence with withdrawal with perceptual disturbance Condition: Stable Record reviewed to determine appropriate education?: Yes Instructions: ED Withdrawal Alcohol Prescriptions: Lorazepam [Ativan] 2 mg PO TID #9 tablet Comments: Prescription sent electronically to [email or web address] in [place]. Go straight to detox after going to the pharmacy. Return if worsening. After getting out of detox follow-up with your primary care physician, next available appointment. She is medically stable for detox admission.
[2020-08-08 08:49] LABS: BASOPHILS # (AUTO) 0.1 10^3/uL (0.0-0.1); BASOPHILS % (AUTO) 0.5 %; EOSINOPHILS % (AUTO) 0.1 %; HCT - HEMATOCRIT 37.3 % (37.0-47.0); HGB - HEMOGLOBIN 12.9 g/dL (12.0-16.0); LYMPHOCYTES # (AUTO) 2.4 10^3/uL (1.5-3.5); LYMPHOCYTES % (AUTO) 17.2 %; MEAN CORPUSCULAR HEMOGLOBIN 35.2 pg (27.0-31.0); MEAN CORPUSCULAR HGB CONC 34.6 g/dL (32.0-36.0); MEAN CORPUSCULAR VOLUME 101.9 fL (81.0-99.0); MEAN PLATELET VOLUME 9.4 fL (7.9-10.8); MONOCYTES # (AUTO) 1.1 10^3/uL (0.0-1.0); MONOCYTES % (AUTO) 8.2 %; NEUTROPHILS # (AUTO) 10.2 10^3/uL (1.5-6.6); NEUTROPHILS % (AUTO) 73.6 %; PLT - PLATELET COUNT 254 10^3/uL (130-450); RED BLOOD COUNT 3.66 10^6/uL (4.20-5.40); RED CELL DISTRIBUTION WIDTH 15.6 % (12.0-15.0); WHITE BLOOD COUNT 13.9 x10^3/uL (4.8-10.8)
[2020-08-08 09:02] LABS: ACETAMINOPHEN < 10 ug/mL (10-30); ALBUMIN 4.7 g/dL (3.2-5.5); ALBUMIN/GLOBULIN RATIO 1.3 (1.0-2.2); ALKALINE PHOSPHATASE 69 IU/L (42-121); ALT ALANINE AMINOTRANSFERASE 28 IU/L (10-60); AST ASPARTATE AMINOTRANSFERASE 44 IU/L (10-42); BILIRUBIN,TOTAL 1.5 mg/dL (0.2-1.0); BUN - BLOOD UREA NITROGEN 10 mg/dL (6-20); CALCIUM 9.3 mg/dL (8.5-10.3); CARBON DIOXIDE - CO2 18 mmol/L (21-32); CHLORIDE 100 mmol/L (101-111); CREATININE 0.8 mg/dL (0.4-1.0); ETOH - ETHANOL < 5.0 mg/dL; GFR - MDRD 80 (>89); GLUCOSE 118 mg/dL (70-100); LIPASE 22 U/L (22-51); POTASSIUM 3.4 mmol/L (3.5-5.0); SALICYLATE < 6.0 mg/dL; SODIUM 137 mmol/L (135-145); TOTAL PROTEIN 8.2 g/dL (6.7-8.2)
[2020-08-08] MEDS ORDERED: POTASSIUM CHLORIDE 20 MEQ TABLET PO STA (09:06)
[2020-08-08 10:11] LABS: MUDS CUTOFF CONCENTRATIONS CUTOFF CONC BELOW:
[2020-08-08 10:15] LABS: BILIRUBIN,URINE NEGATIVE (NEGATIVE); GLUCOSE, URINE (UA) NEGATIVE (NEGATIVE); KETONES,URINE (UA) 15 mg/dL (NEGATIVE); LEUKOCYTE ESTERASE, URINE NEGATIVE (NEGATIVE); NITRITE,URINE NEGATIVE (NEGATIVE); OCCULT BLOOD,URINE TRACE-INTA (NEGATIVE); PH,URINE 5.5 PH (5.0-7.5); PROTEIN,URINE NEGATIVE (NEGATIVE); UROBILINOGEN,URINE 0.2 (NORMAL) E.U./dL (NORMAL)
[2020-08-08 10:17] LABS: CLARITY,URINE CLEAR (CLEAR); HCG UR QUAL NEGATIVE
[2020-08-08 10:25] LABS: AMPHETAMINE SCREEN,URINE NEGATIVE (NEGATIVE); BARBITURATE SCREEN,UR NEGATIVE (NEGATIVE); BENZODIAZEPINES SCREEN, URINE POSITIVE (NEGATIVE); COCAINE SCREEN URINE NEGATIVE (NEGATIVE); METHADONE SCREEN, URINE NEGATIVE (NEGATIVE); METHAMPHETAMINES SCREEN, URINE NEGATIVE (NEGATIVE); OPIATE SCREEN, URINE NEGATIVE (NEGATIVE); OXYCODONE SCREEN, URINE NEGATIVE (NEGATIVE); PROPOXYPHENE SCREEN, URINE NEGATIVE (NEGATIVE); THC CANNABINOID SCREEN, URINE POSITIVE (NEGATIVE); TRICYCLIC ANTIDEPRESSANT,URINE NEGATIVE (NEGATIVE)
[2020-08-08 10:58] LABS: B. PARAPERTUSSIS- RESP PCR PAN NOT DETECTED; B. PERTUSSIS- RESP PCR PANEL NOT DETECTED; C. PNEUMONIAE- RESP PCR PANEL NOT DETECTED; CORONAVIRUS 229E-RESP PCR NOT DETECTED; CORONAVIRUS HKU1-RESP PCR NOT DETECTED; CORONAVIRUS NL63-RESP PCR NOT DETECTED; CORONAVIRUS OC43-RESP PCR NOT DETECTED; HUMAN METAPNEUMOVIRUS NOT DETECTED; INFLUENZA A- RESP PCR PANEL NOT DETECTED; INFLUENZA B - RESP PCR PANEL NOT DETECTED; M. PNEUMONIAE- RESP PCR PANEL NOT DETECTED; PARAINFLUENZA VIRUS 1 NOT DETECTED; PARAINFLUENZA VIRUS 2 NOT DETECTED; PARAINFLUENZA VIRUS 3 NOT DETECTED; PARAINFLUENZA VIRUS 4 NOT DETECTED; RHINOVIRUS/ENTEROVIRUS NOT DETECTED; RSV- RESP PCR PANEL NOT DETECTED; SARS-CoV-2 -RESP PCR PANEL NOT DETECTED
[2020-08-08] MEDS ORDERED: LORazepam 1 MG TABLET PO STA (15:02)
[2020-08-08 15:03] VITALS: BP 144/99
== END 2020-08-08 15:15 | disposition home or self-care (01) ==
LOC: ED 08:07
DX: F10.232 Alcohol dependence with withdrawal with perceptual disturbance (principal); F17.200 Nicotine dependence, unspecified, uncomplicated; Z20.822 Contact with and (suspected) exposure to COVID-19
CPT/HCPCS: 0202U; 36415; 80053; 80306; 80307; 80320; 80329; 81003; 81025; 83690; 84443; 85025; 96365; 96375; 99284; A9270; J2060; J3411; J7040; J8499; 81001; 87086

== ENCOUNTER 2020-11-25 18:03 | Emergency (ER) | payer MEDICAID ==
[2020-11-25 18:12] VITALS: BP 123/90
== END 2020-11-25 18:30 | disposition left against medical advice (07) ==
LOC: ED 18:03
DX: Z53.21 Procedure and treatment not carried out due to patient leaving prior to being seen by health care provider (principal)

== ENCOUNTER 2020-11-28 14:27 | Emergency (ER) | payer MEDICAID ==
[2020-11-28 15:08] LABS: BASOPHILS % (AUTO) 0.6 %; EOSINOPHILS % (AUTO) 0.3 %; HCT - HEMATOCRIT 38.9 % (37.0-47.0); HGB - HEMOGLOBIN 13.9 g/dL (12.0-16.0); MEAN CORPUSCULAR HEMOGLOBIN 34.9 pg (27.0-31.0); MEAN CORPUSCULAR HGB CONC 35.7 g/dL (32.0-36.0); MEAN CORPUSCULAR VOLUME 97.7 fL (81.0-99.0); MEAN PLATELET VOLUME 8.7 fL (7.9-10.8); MONOCYTES # (AUTO) 0.5 10^3/uL (0.0-1.0); NEUTROPHILS # (AUTO) 5.3 10^3/uL (1.5-6.6); NEUTROPHILS % (AUTO) 77.5 %; PLT - PLATELET COUNT 93 10^3/uL (130-450); RED BLOOD COUNT 3.98 10^6/uL (4.20-5.40); RED CELL DISTRIBUTION WIDTH 15.7 % (12.0-15.0); WHITE BLOOD COUNT 6.8 x10^3/uL (4.8-10.8)
[2020-11-28 15:24] LABS: ACETAMINOPHEN < 10 ug/mL (10-30); ALBUMIN 5.4 g/dL (3.2-5.5); ALBUMIN/GLOBULIN RATIO 1.5 (1.0-2.2); ALKALINE PHOSPHATASE 71 IU/L (42-121); ALT ALANINE AMINOTRANSFERASE 67 IU/L (10-60); AST ASPARTATE AMINOTRANSFERASE 168 IU/L (10-42); BUN - BLOOD UREA NITROGEN 8 mg/dL (6-20); CALCIUM 9.5 mg/dL (8.5-10.3); CARBON DIOXIDE - CO2 18 mmol/L (21-32); CHLORIDE 98 mmol/L (101-111); CREATININE 0.7 mg/dL (0.4-1.0); GFR - MDRD 94 (>89); GLUCOSE 80 mg/dL (70-100); LIPASE 34 U/L (22-51); POTASSIUM 3.8 mmol/L (3.5-5.0); SALICYLATE < 6.0 mg/dL; SODIUM 137 mmol/L (135-145); TOTAL PROTEIN 8.9 g/dL (6.7-8.2)
[2020-11-28] MEDS ORDERED: LORazepam 1 MG TABLET PO STA ×2 (15:27→18:49)
--- NOTE | 2020-11-28 15:32 | ED Physician Documentation ---
History of Present Illness - Stated complaint Stated Complaint: ETOH W/D - Chief complaint Chief Complaint: General - History obtained from History obtained from: Patient - History of Present Illness Timing: Today Pain level max: 0 Pain level now: 0 - Additonal information Additional information: Patient is a 40-year-old female Who presents to the emergency department with alcohol withdrawal. She states her last drink was last night. She was attempting to go to detox today. She has never had seizures or hallucinations from alcohol withdrawal. She is not currently . Nothing makes this better or worse. Review of Systems Ten Systems: 10 systems reviewed and negative Constitutional: denies: Fever, Chills Respiratory: denies: Cough GI: reports: Nausea, Vomiting. 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 HEENT: None Psych: Anxiety Musculoskeletal: None Derm: None - Past Surgical History Past Surgical History: No - Present Medications Home Medications: Ambulatory Orders Medication Instructions Recorded Confirmed Citalopram [CeleXA] 40 mg PO DAILY 10/23/17 11/28/20 traZODone [Desyrel] 50 mg PO HS PRN 08/08/20 11/28/20 Albuterol Sulfate [Proair Hfa 2 puffs IH Q4HR PRN 11/28/20 11/28/20 Inhaler] Gabapentin [Neurontin] 300 mg PO TID 11/28/20 11/28/20 hydrOXYzine HCL [Hydroxyzine HCl] 50 mg PO Q8HR PRN 11/28/20 11/28/20 - Allergies Allergies/Adverse Reactions: Allergies Allergy/AdvReac Type Severity Reaction Status Date / Time No Known Drug Allergies Allergy Verified 11/28/20 14:48 - Social History Does the pt smoke?: Yes Smoking Status: Current every day smoker Does the pt drink ETOH?: Yes Does the pt have substance abuse?: No - Immunizations Immunizations are current?: Yes - POLST Patient has POLST: No PD ED PE NORMAL - Vitals Vital signs reviewed: Yes - General General: Alert and oriented X 3, No acute distress - HEENT HEENT: PERRL - Neck Neck: Supple, no meningeal sign - Cardiac Cardiac: RRR, No murmur, Strong equal pulses - Respiratory Respiratory: No respiratory distress, Clear bilaterally - Abdomen Abdomen: Soft, Non tender, Non distended - Derm Derm: Warm and dry - Extremities Extremities: No edema - Neuro Neuro: Alert and oriented X 3 - Psych Psych: Normal mood, Normal affect Results - Vitals Vitals: Vital Signs - 24 hr 11/28/20 11/28/20 11/28/20 14:43 17:59 18:18 Temperature 36.8 C 37.1 C Heart Rate 112 H 83 88 Respiratory 25 H 18 18 Rate Blood Pressure 174/90 H 152/95 H 146/96 H O2 Saturation 97 94 96 11/28/20 20:00 Temperature Heart Rate 93 Respiratory 18 Rate Blood Pressure 143/96 H O2 Saturation 95 Oxygen O2 Source Room air - Labs Labs: Laboratory Tests 11/28/20 11/28/20 11/28/20 15:02 15:02 15:02 WBC 6.8 RBC 3.98 L Hgb 13.9 Hct 38.9 MCV 97.7 MCH 34.9 H MCHC 35.7 RDW 15.7 H Plt Count 93 L MPV 8.7 Neut # (Auto) 5.3 Lymph # (Auto) 1.0 L [place] # (Auto) 0.5 Eos # (Auto) 0.0 Baso # (Auto) 0.0 Absolute Nucleated RBC 0.00 Nucleated RBC % 0.0 PT INR APTT Sodium 137 Potassium 3.8 Chloride 98 L Carbon Dioxide 18 L Anion Gap 21.0 H BUN 8 Creatinine 0.7 Estimated GFR (MDRD) 94 Glucose 80 Calcium 9.5 Total Bilirubin 2.0 H AST 168 H ALT 67 H Alkaline Phosphatase 71 Total Protein 8.9 H Albumin 5.4 Globulin 3.5 Albumin/Globulin Ratio 1.5 Lipase 34 TSH 2.78 Urine Color Urine Clarity Urine pH Ur Specific [place] Urine Protein Urine Glucose (UA) Urine Ketones Urine Occult Blood Urine Nitrite Urine Bilirubin Urine Urobilinogen Ur Leukocyte Esterase Urine RBC Urine WBC Ur Squamous Epith Cells Urine Bacteria Ur Microscopic Review Urine Culture Comments Urine HCG, Qual Nasal Adenovirus (PCR) Nasal B. parapertussis DNA (PCR) Nasal Coronavir 229E PCR Nasal Coronavir HKU1 PCR Nasal Coronavir NL63 PCR Nasal Coronavir OC43 PCR Nasal Enterovir/Rhinovir PCR Nasal Influenza B PCR Nasal Influenza A PCR Nasal Parainfluen 1 PCR Nasal Parainfluen 2 PCR Nasal Parainfluen 3 PCR Nasal Parainfluen 4 PCR Nasal RSV (PCR) Nasal B.pertussis DNA PCR Nasal C.pneumoniae (PCR) Mil Human Metapneumo PCR Nasal M.pneumoniae (PCR) Nasal SARS-CoV-2 (PCR) Salicylates < 6.0 Urine Opiates Screen Ur Oxycodone Screen Urine Methadone Screen Ur Propoxyphene Screen Acetaminophen < 10 L Ur Barbiturates Screen Ur Tricyclics Screen Ur Phencyclidine Scrn Ur Amphetamine Screen U Methamphetamines Scrn U Benzodiazepines Scrn Urine Cocaine Screen U Cannabinoids Screen Ethyl Alcohol 17.0 11/28/20 11/28/20 11/28/20 15:24 18:00 18:05 WBC RBC Hgb Hct MCV MCH MCHC RDW Plt Count MPV Neut # (Auto) Lymph # (Auto) [place] # (Auto) Eos # (Auto) Baso # (Auto) Absolute Nucleated RBC Nucleated RBC % PT 13.5 H INR 1.2 APTT 32.2 Sodium Potassium Chloride Carbon Dioxide Anion Gap BUN Creatinine Estimated GFR (MDRD) Glucose Calcium Total Bilirubin AST ALT Alkaline Phosphatase Total Protein Albumin Globulin Albumin/Globulin Ratio Lipase TSH Urine Color DARK YELLOW Urine Clarity HAZY Urine pH 5.5 Ur Specific [place] >=1.030 H Urine Protein 30 H Urine Glucose (UA) NEGATIVE Urine Ketones >=80 H Urine Occult Blood MODERATE H Urine Nitrite NEGATIVE Urine Bilirubin NEGATIVE Urine Urobilinogen 0.2 (NORMAL) Ur Leukocyte Esterase NEGATIVE Urine RBC 6-10 H Urine WBC 0-3 Ur Squamous Epith Cells MANY Squamous H Urine Bacteria Few Ur Microscopic Review INDICATED Urine Culture Comments NOT INDICATED Urine HCG, Qual NEGATIVE Nasal Adenovirus (PCR) NOT DETECTED Nasal B. parapertussis DNA (PCR) NOT DETECTED Nasal Coronavir 229E PCR NOT DETECTED Nasal Coronavir HKU1 PCR NOT DETECTED Nasal Coronavir NL63 PCR NOT DETECTED Nasal Coronavir OC43 PCR NOT DETECTED Nasal Enterovir/Rhinovir PCR NOT DETECTED Nasal Influenza B PCR NOT DETECTED Nasal Influenza A PCR NOT DETECTED Nasal Parainfluen 1 PCR NOT DETECTED Nasal Parainfluen 2 PCR NOT DETECTED Nasal Parainfluen 3 PCR NOT DETECTED Nasal Parainfluen 4 PCR NOT DETECTED Nasal RSV (PCR) NOT DETECTED Nasal B.pertussis DNA PCR NOT DETECTED Nasal C.pneumoniae (PCR) NOT DETECTED Mil Human Metapneumo PCR NOT DETECTED Nasal M.pneumoniae (PCR) NOT DETECTED Nasal SARS-CoV-2 (PCR) NOT DETECTED Salicylates Urine Opiates Screen NEGATIVE Ur Oxycodone Screen NEGATIVE Urine Methadone Screen NEGATIVE Ur Propoxyphene Screen NEGATIVE Acetaminophen Ur Barbiturates Screen NEGATIVE Ur Tricyclics Screen NEGATIVE Ur Phencyclidine Scrn NEGATIVE Ur Amphetamine Screen NEGATIVE U Methamphetamines Scrn NEGATIVE U Benzodiazepines Scrn POSITIVE H Urine Cocaine Screen POSITIVE H U Cannabinoids Screen POSITIVE H Ethyl Alcohol PD MEDICAL DECISION MAKING - ED course Complexity details: reviewed results, re-evaluated patient, considered differential, d/w patient ED course: Patient feels much better after Ativan. Tachycardia resolved. Nausea resolved. She is accepted to the crisis detox facility in [place]. Patient's will drive her there. Patient counseled regarding signs and symptoms for which I believe and urgent re-evaluation would be necessary. Patient with good understanding of and agreement to plan and is comfortable going home at this time This document was made in part using voice recognition software. While efforts are made to proofread this document, sound alike and grammatical errors may occur. Departure - Departure Disposition: 01 Home, Self Care Clinical Impression: Alcohol withdrawal Qualifiers: Complication of substance-induced condition: uncomplicated Qualified Code(s): F10.230 - Alcohol dependence with withdrawal, uncomplicated Condition: Good Instructions: ED Withdrawal Alcohol Follow-Up: Rebecca Rodriguez DO [Primary Care Provider] - Comments: You are to go directly to [facility] [address] [address]. Phone number is [phone] Take your medications with you. Return if you worsen Discharge Date/Time: 11/28/20 20:24
[2020-11-28 15:35] LABS: INR 1.2 (0.8-1.2); PT - PROTHROMBIN TIME 13.5 secs (9.9-12.6)
[2020-11-28] MEDS ORDERED: LORazepam 2 MG/ML VIAL IM STA (15:41)
[2020-11-28] MEDS ORDERED: ONDANSETRON 4 MG/2 ML VIAL IM STA (15:41)
[2020-11-28 15:42] LABS: PARTIAL THROMBOPLASTIN TIME 32.2 secs (24.9-33.3)
[2020-11-28 18:13] LABS: MUDS CUTOFF CONCENTRATIONS CUTOFF CONC BELOW:
[2020-11-28 18:32] LABS: GLUCOSE, URINE (UA) NEGATIVE (NEGATIVE); KETONES,URINE (UA) >=80 mg/dL (NEGATIVE); LEUKOCYTE ESTERASE, URINE NEGATIVE (NEGATIVE); NITRITE,URINE NEGATIVE (NEGATIVE); OCCULT BLOOD,URINE MODERATE (NEGATIVE); PH,URINE 5.5 PH (5.0-7.5); PROTEIN,URINE 30 mg/dL (NEGATIVE); UROBILINOGEN,URINE 0.2 (NORMAL) E.U./dL (NORMAL)
[2020-11-28 18:37] LABS: BILIRUBIN,URINE NEGATIVE (NEGATIVE); CLARITY,URINE HAZY (CLEAR); HCG UR QUAL NEGATIVE; ICTOTEST,URINE NEGATIVE
[2020-11-28 18:46] LABS: AMPHETAMINE SCREEN,URINE NEGATIVE (NEGATIVE); BARBITURATE SCREEN,UR NEGATIVE (NEGATIVE); BENZODIAZEPINES SCREEN, URINE POSITIVE (NEGATIVE); COCAINE SCREEN URINE POSITIVE (NEGATIVE); METHADONE SCREEN, URINE NEGATIVE (NEGATIVE); METHAMPHETAMINES SCREEN, URINE NEGATIVE (NEGATIVE); OPIATE SCREEN, URINE NEGATIVE (NEGATIVE); OXYCODONE SCREEN, URINE NEGATIVE (NEGATIVE); PROPOXYPHENE SCREEN, URINE NEGATIVE (NEGATIVE); THC CANNABINOID SCREEN, URINE POSITIVE (NEGATIVE); TRICYCLIC ANTIDEPRESSANT,URINE NEGATIVE (NEGATIVE)
[2020-11-28 18:55] LABS: WBC,URINE 0-3 /HPF (0-5)
[2020-11-28 18:56] LABS: BACTERIA,URINE Few /HPF (None Seen); SQUAMOUS EPITHELIAL CELL,UR MANY Squamous (<= Few)
[2020-11-28 19:13] LABS: B. PARAPERTUSSIS- RESP PCR PAN NOT DETECTED; B. PERTUSSIS- RESP PCR PANEL NOT DETECTED; C. PNEUMONIAE- RESP PCR PANEL NOT DETECTED; CORONAVIRUS 229E-RESP PCR NOT DETECTED; CORONAVIRUS HKU1-RESP PCR NOT DETECTED; CORONAVIRUS NL63-RESP PCR NOT DETECTED; CORONAVIRUS OC43-RESP PCR NOT DETECTED; HUMAN METAPNEUMOVIRUS NOT DETECTED; INFLUENZA A- RESP PCR PANEL NOT DETECTED; INFLUENZA B - RESP PCR PANEL NOT DETECTED; M. PNEUMONIAE- RESP PCR PANEL NOT DETECTED; PARAINFLUENZA VIRUS 1 NOT DETECTED; PARAINFLUENZA VIRUS 2 NOT DETECTED; PARAINFLUENZA VIRUS 3 NOT DETECTED; PARAINFLUENZA VIRUS 4 NOT DETECTED; RHINOVIRUS/ENTEROVIRUS NOT DETECTED; RSV- RESP PCR PANEL NOT DETECTED; SARS-CoV-2 -RESP PCR PANEL NOT DETECTED
[2020-11-28 20:24] VITALS: BP 143/96
== END 2020-11-28 20:24 | disposition home or self-care (01) ==
LOC: ED 14:27
DX: F10.230 Alcohol dependence with withdrawal, uncomplicated (principal); Z20.822 Contact with and (suspected) exposure to COVID-19; F17.200 Nicotine dependence, unspecified, uncomplicated
CPT/HCPCS: 0202U; 36415; 80053; 80306; 80307; 80320; 80329; 81001; 81025; 83690; 84443; 85025; 85610; 85730; 96372; 99283; 99284; J2060; J8499; 81003; 87086

== ENCOUNTER 2021-11-23 19:53 | Inpatient (IN) | payer MEDICAID ==
[2021-11-23 21:13] LABS: BASOPHILS % (AUTO) 0.7 %; EOSINOPHILS % (AUTO) 0.3 %; HCT - HEMATOCRIT 38.2 % (37.0-47.0); HGB - HEMOGLOBIN 13.4 g/dL (12.0-16.0); LYMPHOCYTES # (AUTO) 0.9 10^3/uL (1.5-3.5); LYMPHOCYTES % (AUTO) 31.3 %; MEAN CORPUSCULAR HEMOGLOBIN 34.8 pg (27.0-31.0); MEAN CORPUSCULAR HGB CONC 35.1 g/dL (32.0-36.0); MEAN CORPUSCULAR VOLUME 99.2 fL (81.0-99.0); MEAN PLATELET VOLUME 10.3 fL (7.9-10.8); MONOCYTES # (AUTO) 0.3 10^3/uL (0.0-1.0); NEUTROPHILS # (AUTO) 1.7 10^3/uL (1.5-6.6); PLT - PLATELET COUNT 93 10^3/uL (130-450); RED BLOOD COUNT 3.85 10^6/uL (4.20-5.40); RED CELL DISTRIBUTION WIDTH 12.7 % (12.0-15.0)
[2021-11-23 21:38] LABS: ALBUMIN 4.4 g/dL (3.2-5.5); ALBUMIN/GLOBULIN RATIO 1.3 (1.0-2.2); BILIRUBIN,TOTAL 0.8 mg/dL (0.2-1.0); CALCIUM 9.4 mg/dL (8.5-10.3); CREATININE 0.6 mg/dL (0.4-1.0); POTASSIUM 4.6 mmol/L (3.5-5.0); TOTAL PROTEIN 7.9 g/dL (6.7-8.2)
[2021-11-23 22:39] LABS: BILIRUBIN,URINE NEGATIVE (NEGATIVE); GLUCOSE, URINE (UA) NEGATIVE (NEGATIVE); KETONES,URINE (UA) NEGATIVE (NEGATIVE); LEUKOCYTE ESTERASE, URINE NEGATIVE (NEGATIVE); NITRITE,URINE NEGATIVE (NEGATIVE); OCCULT BLOOD,URINE TRACE-INTA (NEGATIVE); PROTEIN,URINE NEGATIVE (NEGATIVE); UROBILINOGEN,URINE 1 (NORMAL) E.U./dL (NORMAL)
[2021-11-23 22:48] LABS: CLARITY,URINE CLEAR (CLEAR); HCG UR QUAL NEGATIVE
[2021-11-23] MEDS ORDERED: SODIUM CHLORIDE 0.9% 1,000 ML IV STA (23:28)
[2021-11-23] MEDS ORDERED: ONDANSETRON 4 MG/2 ML VIAL IVP STA (23:28)
[2021-11-23] MEDS ORDERED: diazePAM INJ 5 MG/ML SYRINGE IVP STA (23:30)
[2021-11-24] MEDS ORDERED: diazePAM INJ 5 MG/ML SYRINGE IVP STA ×3 (00:53→04:56)
--- NOTE | 2021-11-24 01:42 | CT Report ---
PROCEDURE: Abdomen/Pelvis WO INDICATIONS: upper abd pain/vomiting TECHNIQUE: Noncontrast 5 mm thick sections acquired from the diaphragms to the symphysis. 5 mm coronal and sagi ttal reformats were then performed. For radiation dose reduction, the following was used: automated exposure control, adjustment of mA and/or kV according to patient size. COMPARISON: None. FINDINGS: Image quality: Excellent. Lung bases: Unremarkable. Heart: Heart is normal in size. There is a small hiatal hernia. ABDOMEN: Liver:There is diffuse hypoattenuation of the liver consistent with fatty infiltration. Gallbladder: Within normal limits without calcified gallstones. Biliary ducts: No biliary ductal dilatation. Pancreas:No peripancreatic fat stranding or fluid collections. Spleen: Normal in size. Adrenal Glands: No adrenal nodules. Kidneys and Ureters: No hydronephrosis. Stomach and Bowel: Stomach, small bowel loops, and colon are normal in caliber and wall thickness. T he appendix is normal in appearance. Peritoneum: No abnormal intraperitoneal fluid. No free air. Ventral Wall: No hernia. Abdominal Nodes: No retroperitoneal or mesenteric adenopathy by size criteria. Vessels: Aorta and inferior vena cava are normal in size. PELVIS: Pelvic Organs:An IUD appears in appropriate position within the uterus.. Bladder: Unremarkable. Pelvic Nodes: No enlarged lymph nodes. Miscellaneous: No inguinal hernias are seen. Bones: Visualized osseous structures demonstrate no suspicious focal lesions. IMPRESSION: 1. No definite acute intra-abdominal abnormality. Specifically, no CT evidence of pancreatitis or cho lecystitis. No evidence of bowel obstruction. 2. Hepatic steatosis. Reviewed by: Neo Vega MD on 11/24/2021 1:45 AM PDT Approved by: Neo Vega MD on 11/24/2021 1:45 AM PDT Station ID: [id number]
[2021-11-24] MEDS ORDERED: KETOROLAC 30 MG/ML VIAL IVP STA (03:11)
--- NOTE | 2021-11-24 03:24 | ED Physician Documentation ---
PD HPI ABD PAIN - Stated complaint Stated Complaint: ALCOHOL WITHDRAWL - Chief complaint Chief Complaint: Abd Pain - History obtained from History obtained from: Patient - Additional information Additional information: Patient is a 41-year-old female with a history of alcohol abuse presenting for evaluation of Nausea and vomiting, shakiness and anxiety that has been present throughout the afternoon. Patient has a history of heavy drinking with 6-10 beers daily. She reports only having 2 beers today and the last one was around 1400. She has associated upper abdominal pain which has been intermittent over the last week and has a history of pancreatitis. Nothing makes her symptoms better or worse. She did call the detox facility in [place] but they do not have any beds tonight and recommended she call back tomorrow at 9 AM. She was last in rehab a year ago. She denies suicidal or homicidal thoughts. She is wanting help for Her substance abuse. She denies drug use. She denies concern for .She believes she may have had a seizure in the past. Review of Systems Constitutional: denies: Fever Nose: denies: Congestion Cardiac: reports: Chest pain / pressure Respiratory: denies: Dyspnea, Cough GI: reports: Abdominal Pain, Nausea, Vomiting : denies: Dysuria Skin: denies: Rash Musculoskeletal: denies: Back pain Neurologic: reports: Generalized weakness Psychiatric: reports: Anxiety. 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 : None HEENT: None Psych: Anxiety Musculoskeletal: None Derm: None - Past Surgical History Past Surgical History: No - Present Medications Home Medications: Ambulatory Orders Medication Instructions Recorded Confirmed traZODone [Desyrel] 50 mg PO HS PRN 08/08/20 11/24/21 Albuterol Sulfate [Proair Hfa 2 puffs IH Q4HR PRN 11/28/20 11/24/21 Inhaler] Gabapentin [Neurontin] 300 mg PO TID 11/28/20 11/24/21 Citalopram Hydrobromide 40 mg PO DAILY 11/24/21 11/24/21 [Citalopram HBr] Omeprazole 40 mg PO QDAC 11/24/21 11/24/21 Propranolol [Inderal] 40 mg PO DAILY 11/24/21 11/24/21 hydrOXYzine HCL [Hydroxyzine HCl] 25 mg PO TID PRN 11/24/21 11/24/21 methocarbamoL [Robaxin] 500 mg PO QID PRN 11/24/21 11/24/21 - Allergies Allergies/Adverse Reactions: Allergies Allergy/AdvReac Type Severity Reaction Status Date / Time No Known Drug Allergies Allergy Verified 11/23/21 20:06 - Social History Does the pt smoke?: Yes Smoking Status: Current every day smoker Does the pt drink ETOH?: Yes Does the pt have substance abuse?: No - Immunizations Immunizations are current?: Yes - POLST Patient has POLST: No PD ED PE NORMAL - General General: Alert and oriented X 3, No acute distress, Well developed/nourished - HEENT HEENT: Atraumatic. No: Moist mucous membranes (Dry mucous membranes) - Neck Neck: Supple, no meningeal sign - Cardiac Cardiac: RRR, No murmur, Strong equal pulses - Respiratory Respiratory: No respiratory distress, Clear bilaterally - Abdomen Abdomen: Normal bowel sounds, Soft, Non distended, Other (Epigastric and right upper quadrant tenderness). No: Non tender - Back Back: No CVA TTP - Derm Derm: Warm and dry - Extremities Extremities: Other (Tremulous) - Neuro Neuro: Alert and oriented X 3, No motor deficit Results - Vitals Vitals: Vital Signs - 24 hr 11/24/21 11/24/21 11/24/21 00:05 02:00 04:31 Temperature 37.6 C 37.4 C Heart Rate 71 68 81 Respiratory 17 15 20 Rate Blood Pressure 120/98 H 159/89 H 153/109 H O2 Saturation 96 98 98 11/24/21 11/24/21 05:30 06:00 Temperature Heart Rate 74 63 Respiratory 18 16 Rate Blood Pressure 166/96 H O2 Saturation 98 Oxygen O2 Source Room air - EKG (time done) 2009 Rate: Rate (enter#) (63) Rhythm: NSR [place]: Normal Intervals: Other (QTC 461) Ischemia: No: ST elevation c/w ischemia - Labs Labs: Laboratory Tests 11/23/21 11/23/21 11/23/21 20:58 20:58 20:58 WBC 3.0 L RBC 3.85 L Hgb 13.4 Hct 38.2 MCV 99.2 H MCH 34.8 H MCHC 35.1 RDW 12.7 Plt Count 93 L MPV 10.3 Neut # (Auto) 1.7 Lymph # (Auto) 0.9 L [place] # (Auto) 0.3 Eos # (Auto) 0.0 Baso # (Auto) 0.0 Absolute Nucleated RBC 0.00 Nucleated RBC % 0.0 Sodium 139 Potassium 4.6 Chloride 103 Carbon Dioxide 23 Anion Gap 13.0 BUN 7 Creatinine 0.6 Estimated GFR (MDRD) 111 Glucose 112 H Calcium 9.4 Total Bilirubin 0.8 AST 485 H ALT 97 H Alkaline Phosphatase 121 Troponin I High Sens 4.8 Total Protein 7.9 Albumin 4.4 Globulin 3.5 Albumin/Globulin Ratio 1.3 Lipase 68 H Urine Color Urine Clarity Urine pH Ur Specific [place] Urine Protein Urine Glucose (UA) Urine Ketones Urine Occult Blood Urine Nitrite Urine Bilirubin Urine Urobilinogen Ur Leukocyte Esterase Ur Microscopic Review Urine Culture Comments Urine HCG, Qual Ethyl Alcohol SARS-CoV-2 (PCR) 11/23/21 11/23/21 11/24/21 20:58 22:30 03:40 WBC RBC Hgb Hct MCV MCH MCHC RDW Plt Count MPV Neut # (Auto) Lymph # (Auto) [place] # (Auto) Eos # (Auto) Baso # (Auto) Absolute Nucleated RBC Nucleated RBC % Sodium Potassium Chloride Carbon Dioxide Anion Gap BUN Creatinine Estimated GFR (MDRD) Glucose Calcium Total Bilirubin AST ALT Alkaline Phosphatase Troponin I High Sens Total Protein Albumin Globulin Albumin/Globulin Ratio Lipase Urine Color YELLOW Urine Clarity CLEAR Urine pH 6.0 Ur Specific [place] 1.025 Urine Protein NEGATIVE Urine Glucose (UA) NEGATIVE Urine Ketones NEGATIVE Urine Occult Blood TRACE-INTA Urine Nitrite NEGATIVE Urine Bilirubin NEGATIVE Urine Urobilinogen 1 (NORMAL) Ur Leukocyte Esterase NEGATIVE Ur Microscopic Review NOT INDICATED Urine Culture Comments NOT INDICATED Urine HCG, Qual NEGATIVE Ethyl Alcohol 145.2 SARS-CoV-2 (PCR) DETECTED A PD MEDICAL DECISION MAKING - ED course Complexity details: reviewed results, re-evaluated patient, d/w patient ED course: Patient presenting for evaluation of alcohol withdrawal and upper abdominal pain with vomiting. She appears very tremulous. Labs, EKG and imaging were obtained. No signs of ACS. Abdominal testing was benign. Patient did require numerous doses of IV benzodiazepines given her high CIWA scores. Initially there was no ICU bed available and her CIWA was too high for MedSurg but after several doses of Valium it was within the threshold for MedSurg admission and she was excepted. She was incidentally found to have COVID-19 as part of the admission process. She denies any symptoms such as difficulty breathing, coughing. 0327 - Discussed with Dr. Dukes for admission. She agrees to admit the patient but unfortunately there are no ICU beds available. Patient will need to have a CIWA of 20 or less for the floor and her last check was 26. 0545 - CIWA down to 16. Discussed with hospitalist will admit the patient. Patient reports having some wheezing. Has a history of asthma. Breathing treatment has been ordered. - Critical Care Time(min): 42 Time Includes: Direct patient care, Review records, Reassess patient Departure - Departure Disposition: 66 [facility] DC/Xfer Clinical Impression: Alcohol withdrawal, COVID-19 Condition: Good Discharge Date/Time: 11/24/21 08:17
[2021-11-24] MEDS ORDERED: ONDANSETRON 4 MG/2 ML VIAL IVP STA (04:56)
[2021-11-24] MEDS ORDERED: ALBUTEROL NEB 2.5 MG/3 ML INH STA (04:57)
[2021-11-24] MEDS ORDERED: NICOTINE 14 MG PATCH TOP PRN (06:34)
[2021-11-24 06:50] LABS: BASOPHILS % (AUTO) 0.8 %; HCT - HEMATOCRIT 35.4 % (37.0-47.0); HGB - HEMOGLOBIN 12.1 g/dL (12.0-16.0); LYMPHOCYTES # (AUTO) 0.8 10^3/uL (1.5-3.5); LYMPHOCYTES % (AUTO) 28.8 %; MEAN CORPUSCULAR HGB CONC 34.2 g/dL (32.0-36.0); MEAN CORPUSCULAR VOLUME 102.3 fL (81.0-99.0); MEAN PLATELET VOLUME 10.1 fL (7.9-10.8); MONOCYTES # (AUTO) 0.3 10^3/uL (0.0-1.0); MONOCYTES % (AUTO) 10.4 %; NEUTROPHILS # (AUTO) 1.6 10^3/uL (1.5-6.6); NEUTROPHILS % (AUTO) 59.6 %; PLT - PLATELET COUNT 74 10^3/uL (130-450); RED BLOOD COUNT 3.46 10^6/uL (4.20-5.40); RED CELL DISTRIBUTION WIDTH 12.9 % (12.0-15.0); WHITE BLOOD COUNT 2.6 x10^3/uL (4.8-10.8)
[2021-11-24 07:01] LABS: INR 1.2 (0.8-1.2); PT - PROTHROMBIN TIME 13.3 secs (9.9-12.6)
[2021-11-24 07:07] LABS: ALBUMIN/GLOBULIN RATIO 1.3 (1.0-2.2); BILIRUBIN,TOTAL 0.9 mg/dL (0.2-1.0); CALCIUM 8.7 mg/dL (8.5-10.3); CREATININE 0.6 mg/dL (0.4-1.0); MAGNESIUM 1.4 mg/dL (1.7-2.8); POTASSIUM 3.9 mmol/L (3.5-5.0)
[2021-11-24 07:56] LABS: PLATELET ESTIMATE, MANUAL DECREASED (<130,000) (NORMAL); PLATELET MORPHOLOGY NORMAL APPEARANCE (NORMAL); RBC MORPHOLOGY (MULTIPLE) 1+ MACROCYTOSIS (NORMAL); WBC MORPHOLOGY (MULTIPLE) NORMAL APPEARANCE (NORMAL)
[2021-11-24 07:57] LABS: DIFFERENTIAL COMMENT MANUAL=AUTO DIFF
[2021-11-24] MEDS: HYDROmorphone 0.5 MG/0.5 ML SYRINGE IVP PRN ×2 (09:16→21:08)
[2021-11-24] MEDS: chlordiazePOXIDE 25 MG CAPSULE PO SCH ×2 (09:17→16:58)
[2021-11-24] MEDS: SODIUM CHLORIDE FLUSH 0.9% 10 ML SYRINGE IVP SCH ×2 (09:17→15:43)
[2021-11-24] MEDS ORDERED: MULTIVITAMIN 10 ML, THIAMINE INJ 100 MG, FOLIC ACID INJ 1 MG in SODIUM CHLORIDE 0.9% 1,... IV SCH (10:00)
[2021-11-24] MEDS: LORazepam 2 MG/ML VIAL IVP PRN ×3 (10:06→15:42)
[2021-11-24] MEDS: PANTOPRAZOLE 40 MG TABLET PO SCH (10:57)
--- NOTE | 2021-11-24 11:53 | HISTORY & PHYSICAL EXAMINATION ---
Chief Complaint - Chief Complaint Chief Complaint: shaking, vomiting, diaphoresis History of Present Illness - Admitted From Admitted From:: [facility] - History Obtained From Records Reviewed: yes History obtained from: patient - History of Present Illness HPI Comment/Other: 41-year-old female with medical history significant for asthma, anxiety, GERD and alcohol abuse with history of alcohol withdrawal who presented to the ED with complaint of shaking, vomiting and diaphoresis. This started yesterday 11/23/2021 around 3 PM. She normally drinks about 12 cans of beer daily. She last drank beer yesterday afternoon. She drank Melissa light 16 ounces, 4 to 6 cans. The ED her alcohol level was 152. She scored a 32 on a CIWA. As a result she was presented for admission for continued treatment of alcohol withdrawal. She has been to [facility]hab [facility] in July 2021 where she stayed for 42 days. Currently she denies chest pain, abdominal pain, nausea, vomiting, fever or chills. She also denies dyspnea. As part of her work-up for admission she had a COVID-19 test done in the ED which was positive. She denies knowingly being around somebody sick. She is unvaccinated for COVID. History - Past Medical History Cardiovascular: reports: None Respiratory: reports: Asthma Neuro: reports: None Endocrine/Autoimmune: reports: None GI: reports: GERD COLLATERAL SPECIALIST: reports: None : reports: None HEENT: reports: None Psych: reports: Anxiety Musculoskeletal: reports: None Derm: reports: None MRSA Hx?: No Other Past Medical History: Alcohol abuse, Anxiety - Past Surgical History /COLLATERAL SPECIALIST: reports: Other (Vaginal delivery) - Family & Social History Family History Comment/Other: Extensive family history of Diabetes mellitus Social History Notes: She recently resumed smoking cigarettes after giving to her child. She smokes about one quarter of a pack of cigarettes daily. She typically drinks about 12 cans of beer daily. She uses marijuana occasionally. - POLST Patient has POLST: No POLST Status: Full Code Meds/Allgy - Home Medications Home Medications: Ambulatory Orders Medication Instructions Recorded Confirmed Citalopram [CeleXA] 40 mg PO DAILY 10/23/17 11/28/20 traZODone [Desyrel] 50 mg PO HS PRN 08/08/20 11/28/20 Albuterol Sulfate [Proair Hfa 2 puffs IH Q4HR PRN 11/28/20 11/28/20 Inhaler] Gabapentin [Neurontin] 300 mg PO TID 11/28/20 11/28/20 hydrOXYzine HCL [Hydroxyzine HCl] 50 mg PO Q8HR PRN 11/28/20 11/28/20 - Allergies Allergies/Adverse Reactions: Allergies Allergy/AdvReac Type Severity Reaction Status Date / Time No Known Drug Allergies Allergy Verified 11/23/21 20:06 Review of Systems - Constitutional Constitutional: reports: Other (tremulous). denies: Fatigue, Fever, Chills - Eyes Eyes: denies: Pain, Vision loss - Ears, Nose & Throat Ears, Nose & Throat: denies: Ear pain, Sore throat - Cardiovascular Cariovascular: denies: Irregular heart rate, Chest pain, Edema, Lightheadedness, Syncope - Respiratory Respiratory: denies: Cough, Sputum production, Wheezing, SOB at rest - Gastrointestinal Gastrointestinal: reports: Nausea, Vomiting. denies: Abdominal pain, Abdominal distention - Genitourinary Genitourinary: denies: Dysuria, Frequency, Urgency, Hematuria - Musculoskeletal Musculoskeletal: denies: Muscle pain, Back pain, Muscle aches, Stiffness - Integumentary Integumentary: denies: Rash, Pruritis, Lesions, Dryness - Neurological Neurological: denies: General weakness, Focal weakness, Headache - Psychiatric Psychiatric: reports: Depression, Anxiety - Endocrine Endocrine: denies: Polyuria, Polydypsia - Hematologic/Lymphatic Hematologic/Lymphatic: denies: Anemia, Bruising, Petechiae Prior Level of Functionality: She is normally independent of activities of daily living. Exam - Vital Signs Vital Signs: Vital Signs x48h Temp Pulse Pulse Resp BP BP Pulse Ox 11/24/21 08:16 37.4 C 61 19 155/82 H 98 11/24/21 07:36 85 18 140/96 H 97 11/24/21 06:00 63 16 166/96 H 98 11/24/21 05:30 74 18 11/24/21 04:31 37.4 C 81 20 153/109 H 98 - Physical Exam General Appearance: positive: Alert, Moderate distress, Other (Tremulous) Eyes Bilateral: positive: PERRL, EOMI ENT: positive: No signs of dehydration Neck: positive: No JVD, Trachea midline Respiratory: positive: Chest non-tender, No respiratory distress, Breath sounds nml. negative: Wheezes, Rales, Rhonchi Cardiovascular: positive: Regular rate & rhythm, No murmur Abdomen: positive: Non-tender, No organomegaly, Nml bowel sounds, No distention. negative: Guarding, Rebound Back: positive: Nml inspection Skin: positive: Color nml, No rash, Warm, Dry Extremities: positive: Non-tender, Full ROM, Nml appearance, No pedal edema Neurologic/Psychiatric: positive: Oriented x3, Other (Tremulous) Conclusion/Plan - Problem List (1) Alcohol withdrawal Conclusion/Plan: CIWA protocol initiated. Patient receiving banana bag. Librium 25 mg p.o. every 8 hours. (2) COVID-19 Conclusion/Plan: Incidental finding. Patient is asymptomatic. We will hold off on any treatment at the moment. Patient is unvaccinated for COVID-19. - Lab Results Fish Bones: 11/24/21 06:40 11/24/21 06:40 Core Measures - Anticipated LOS I expect patient to be DC'd or transferred within 96 hours.: Yes - DVT/VTE - Prophylaxis VTE/DVT Device ordered at admit?: Yes VTE/DVT Prophylaxis med ordered at admit?: Yes
[2021-11-24] MEDS: ONDANSETRON 4 MG/2 ML VIAL IVP PRN (15:49)
[2021-11-24 16:33] LABS: MUDS CUTOFF CONCENTRATIONS CUTOFF CONC BELOW:
[2021-11-24 16:45] LABS: AMPHETAMINE SCREEN,URINE NEGATIVE (NEGATIVE); BARBITURATE SCREEN,UR NEGATIVE (NEGATIVE); BENZODIAZEPINES SCREEN, URINE POSITIVE (NEGATIVE); COCAINE SCREEN URINE NEGATIVE (NEGATIVE); METHADONE SCREEN, URINE NEGATIVE (NEGATIVE); METHAMPHETAMINES SCREEN, URINE NEGATIVE (NEGATIVE); OPIATE SCREEN, URINE POSITIVE (NEGATIVE); OXYCODONE SCREEN, URINE NEGATIVE (NEGATIVE); PROPOXYPHENE SCREEN, URINE NEGATIVE (NEGATIVE); THC CANNABINOID SCREEN, URINE POSITIVE (NEGATIVE); TRICYCLIC ANTIDEPRESSANT,URINE NEGATIVE (NEGATIVE)
[2021-11-25] MEDS: chlordiazePOXIDE 25 MG CAPSULE PO SCH ×3 (00:42→16:08)
[2021-11-25] MEDS: SODIUM CHLORIDE FLUSH 0.9% 10 ML SYRINGE IVP SCH ×3 (00:43→16:09)
[2021-11-25] MEDS: LORazepam 2 MG/ML VIAL IVP PRN ×5 (00:47→21:14)
[2021-11-25] MEDS: HYDROmorphone 0.5 MG/0.5 ML SYRINGE IVP PRN (05:17)
[2021-11-25] MEDS: PANTOPRAZOLE 40 MG TABLET PO SCH (05:17)
[2021-11-25] MEDS: ONDANSETRON 4 MG/2 ML VIAL IVP PRN ×2 (05:18→12:09)
[2021-11-25 05:30] LABS: ALBUMIN 3.9 g/dL (3.2-5.5); ALBUMIN/GLOBULIN RATIO 1.2 (1.0-2.2); BILIRUBIN,TOTAL 1.1 mg/dL (0.2-1.0); CALCIUM 8.8 mg/dL (8.5-10.3); CREATININE 0.5 mg/dL (0.4-1.0); MAGNESIUM 1.7 mg/dL (1.7-2.8); PHOSPHORUS 3.9 mg/dL (2.5-4.6); POTASSIUM 3.1 mmol/L (3.5-5.0); TOTAL PROTEIN 7.2 g/dL (6.7-8.2)
[2021-11-25] MEDS ORDERED: POTASSIUM CHLORIDE 20 MEQ TABLET PO ONE (08:07)
--- NOTE | 2021-11-25 08:08 | PROVIDER PROGRESS NOTE ---
Assessment/Plan - Problem List (1) Alcohol withdrawal Assessment/Plan: On CIWA protocol Librium 25mg po q8hrs (2) COVID-19 Assessment/Plan: Incidental finding. Patient is asymptomatic. We will hold off on any treatment at the moment. Patient is unvaccinated for COVID-19. - Current Meds Current Meds: Current Medications Generic Name Dose Route Start Last Admin Trade Name Freq PRN Reason Stop Dose Admin Chlordiazepoxide HCl 25 mg 11/24/21 09:00 11/25/21 00:42 Chlordiazepoxide 25 Mg Capsule PO 25 mg Q8H JENISE Administration Hydromorphone HCl 0.5 mg 11/24/21 06:24 11/25/21 05:17 Hydromorphone 0.5 Mg/0.5 Ml Syringe IVP 0.5 mg Q2H PRN Administration Pain 8 to 10 Multivitamins 10 ml/ Thiamine 1,011.2 mls @ 100 mls/hr 11/24/21 10:00 11/24/21 19:24 HCl 100 mg/ Folic Acid 1 mg/ IV Infused Sodium Chloride DAILY JENISE Infusion Lorazepam 2 mg 11/24/21 06:27 11/25/21 05:16 Lorazepam 2 Mg/Ml Vial IVP 2 mg Q30M PRN Administration CIWA >8 Protocol Ondansetron HCl 4 mg 11/24/21 06:24 11/25/21 05:18 Ondansetron 4 Mg/2 Ml Vial IVP 4 mg Q6HR PRN Administration Nausea / Vomiting Pantoprazole Sodium 40 mg 11/24/21 11:00 11/25/21 05:17 Pantoprazole 40 Mg Tablet PO 40 mg QDAC JENISE Administration Sodium Chloride 10 ml 11/24/21 09:00 11/25/21 00:43 Sodium Chloride Flush 0.9% 10 Ml Syringe IVP 10 ml 0100,0900,1700 JENISE Administration - Lab Result Fish Bone Diagrams: 11/24/21 06:40 11/25/21 04:56 - Additional Planning My Orders: My Active Orders 11/24/21 11:00 Pantoprazole [Protonix] 40 mg PO QDAC 11/24/21 Lunch Regular Diet [DIET] 11/25/21 08:07 Potassium Chloride [K-Dur] 40 meq PO ONCE ONE Subjective - Subjective Patient Reports: Other (Resting comfortably in bed at time of exam. She still has a mild tremor. She denied any other complaints.) Objective Vital Signs: Vital Signs - 24 hr 11/24/21 11/24/21 11/24/21 08:16 11:54 15:31 Temperature 37.4 C 36.9 C 37 C Heart Rate [ 61 59 L 75 Brachial] Respiratory 19 17 18 Rate Blood Pressure 155/82 H 157/93 H 144/97 H [Left Brachial artery] O2 Saturation 98 94 95 11/24/21 11/25/21 11/25/21 21:00 00:45 04:52 Temperature 37.0 C 36.9 C 36.9 C Heart Rate [ 67 72 79 Brachial] Respiratory 16 18 18 Rate Blood Pressure 139/82 H 143/86 H 145/97 H [Left Brachial artery] O2 Saturation 93 94 93 Oxygen O2 Source Room air I&O (Last 24 Hrs): Intake and Output Totals x24h 11/23/21 11/24/21 11/25/21 23:59 23:59 23:59 Intake Total 2551.2 Output Total 200 800 Balance 2351.2 -800 General: Alert, Oriented x3, Other (Mildly tremulous) HEENT: PERRLA, EOMI Neck: Supple, No JVD Neuro: Alert, Oriented Times 3, Other (Mildly tremulous) Cardiovascular: Regular rate Respiratory: Chest non-tender, No respiratory distress, Breath sounds nml Abdomen: Normal bowel sounds, Soft Extremities: No clubbing, No cyanosis, No edema, No tenderness/swelling Skin: No rashes, No breakdown, No significant lesion - Results Results: Laboratory Results WBC 2.6 x10^3/uL (4.8-10.8) L 11/24/21 06:40 RBC 3.46 10^6/uL (4.20-5.40) L 11/24/21 06:40 Hgb 12.1 g/dL (12.0-16.0) 11/24/21 06:40 Hct 35.4 % (37.0-47.0) L 11/24/21 06:40 MCV 102.3 fL (81.0-99.0) H 11/24/21 06:40 MCH 35.0 pg (27.0-31.0) H 11/24/21 06:40 MCHC 34.2 g/dL (32.0-36.0) 11/24/21 06:40 RDW 12.9 % (12.0-15.0) 11/24/21 06:40 Plt Count 74 10^3/uL (130-450) L 11/24/21 06:40 MPV 10.1 fL (7.9-10.8) 11/24/21 06:40 Neut # (Auto) 1.6 10^3/uL (1.5-6.6) 11/24/21 06:40 Lymph # (Auto) 0.8 10^3/uL (1.5-3.5) L 11/24/21 06:40 [place] # (Auto) 0.3 10^3/uL (0.0-1.0) 11/24/21 06:40 Eos # (Auto) 0.0 10^3/uL (0.0-0.7) 11/24/21 06:40 Baso # (Auto) 0.0 10^3/uL (0.0-0.1) 11/24/21 06:40 Absolute Nucleated RBC 0.00 x10^3/uL 11/24/21 06:40 Total Counted FREIGHT AGENT 11/24/21 06:40 Band Neuts % (Manual) Not Reportable 11/24/21 06:40 Abnorm Lymph % (Manual) Not Reportable 11/24/21 06:40 Nucleated RBC % 0.0 /100WBC 11/24/21 06:40 Neutrophils # (Manual) Not Reportable 11/24/21 06:40 Lymphocytes # (Manual) Not Reportable 11/24/21 06:40 Monocytes # (Manual) Not Reportable 11/24/21 06:40 Eosinophils # (Manual) Not Reportable 11/24/21 06:40 Basophils # (Manual) Not Reportable 11/24/21 06:40 Differential Comment MANUAL=AUTO DIFF 11/24/21 06:40 WBC Morphology NORMAL APPEARANCE (NORMAL) 11/24/21 06:40 Platelet Estimate DECREASED (<130,000) (NORMAL) 11/24/21 06:40 Platelet Morphology NORMAL APPEARANCE (NORMAL) 11/24/21 06:40 RBC Morph Micro Appear 1+ MACROCYTOSIS (NORMAL) 11/24/21 06:40 PT 13.3 secs (9.9-12.6) H 11/24/21 06:40 INR 1.2 (0.8-1.2) 11/24/21 06:40 Sodium 131 mmol/L (135-145) L 11/25/21 04:56 Potassium 3.1 mmol/L (3.5-5.0) L 11/25/21 04:56 Chloride 96 mmol/L (101-111) L 11/25/21 04:56 Carbon Dioxide 25 mmol/L (21-32) 11/25/21 04:56 Anion Gap 10.0 (6-13) 11/25/21 04:56 BUN 7 mg/dL (6-20) 11/25/21 04:56 Creatinine 0.5 mg/dL (0.4-1.0) 11/25/21 04:56 Estimated GFR (MDRD) 137 (>89) 11/25/21 04:56 Glucose 94 mg/dL (70-100) 11/25/21 04:56 Calcium 8.8 mg/dL (8.5-10.3) 11/25/21 04:56 Phosphorus 3.9 mg/dL (2.5-4.6) 11/25/21 04:56 Magnesium 1.7 mg/dL (1.7-2.8) 11/25/21 04:56 Total Bilirubin 1.1 mg/dL (0.2-1.0) H 11/25/21 04:56 AST 219 IU/L (10-42) H 11/25/21 04:56 ALT 66 IU/L (10-60) H 11/25/21 04:56 Alkaline Phosphatase 100 IU/L (42-121) 11/25/21 04:56 Troponin I High Sens 4.8 ng/L (2.3-14.8) 11/23/21 20:58 Total Protein 7.2 g/dL (6.7-8.2) 11/25/21 04:56 Albumin 3.9 g/dL (3.2-5.5) 11/25/21 04:56 Globulin 3.3 g/dL (2.1-4.2) 11/25/21 04:56 Albumin/Globulin Ratio 1.2 (1.0-2.2) 11/25/21 04:56 Lipase 68 U/L (22-51) H 11/23/21 20:58 Urine Color YELLOW 11/23/21 22:30 Urine Clarity CLEAR (CLEAR) 11/23/21 22:30 Urine pH 6.0 PH (5.0-7.5) 11/23/21 22:30 Ur Specific [place] 1.025 (1.002-1.030) 11/23/21 22:30 Urine Protein NEGATIVE mg/dL (NEGATIVE) 11/23/21 22:30 Urine Glucose (UA) NEGATIVE mg/dL (NEGATIVE) 11/23/21 22:30 Urine Ketones NEGATIVE mg/dL (NEGATIVE) 11/23/21 22:30 Urine Occult Blood TRACE-INTA (NEGATIVE) 11/23/21 22:30 Urine Nitrite NEGATIVE (NEGATIVE) 11/23/21 22:30 Urine Bilirubin NEGATIVE (NEGATIVE) 11/23/21 22:30 Urine Urobilinogen 1 (NORMAL) E.U./dL (NORMAL) 11/23/21 22:30 Ur Leukocyte Esterase NEGATIVE (NEGATIVE) 11/23/21 22:30 Ur Microscopic Review NOT INDICATED 11/23/21 22:30 Urine Culture Comments NOT INDICATED 11/23/21 22:30 Urine HCG, Qual NEGATIVE 11/23/21 22:30 Urine Opiates Screen POSITIVE (NEGATIVE) H 11/24/21 16:20 Ur Oxycodone Screen NEGATIVE (NEGATIVE) 11/24/21 16:20 Urine Methadone Screen NEGATIVE (NEGATIVE) 11/24/21 16:20 Ur Propoxyphene Screen NEGATIVE (NEGATIVE) 11/24/21 16:20 Ur Barbiturates Screen NEGATIVE (NEGATIVE) 11/24/21 16:20 Ur Tricyclics Screen NEGATIVE (NEGATIVE) 11/24/21 16:20 Ur Phencyclidine Scrn NEGATIVE (NEGATIVE) 11/24/21 16:20 Ur Amphetamine Screen NEGATIVE (NEGATIVE) 11/24/21 16:20 U Methamphetamines Scrn NEGATIVE (NEGATIVE) 11/24/21 16:20 U Benzodiazepines Scrn POSITIVE (NEGATIVE) H 11/24/21 16:20 Urine Cocaine Screen NEGATIVE (NEGATIVE) 11/24/21 16:20 U Cannabinoids Screen POSITIVE (NEGATIVE) H 11/24/21 16:20 Ethyl Alcohol 145.2 mg/dL 11/23/21 20:58 SARS-CoV-2 (PCR) DETECTED A 11/24/21 03:40 ABX Reporting Has patient been on IV antibiotics over the past 48 hours?: No
[2021-11-25] MEDS: SODIUM CHLORIDE FLUSH 0.9% 10 ML SYRINGE IVP PRN ×4 (08:37→21:15)
[2021-11-25] MEDS: guaiFENesin 600 MG TABLET PO SCH ×2 (09:54→21:10)
[2021-11-25] MEDS: PRENATAL VITAMIN TABLET PO SCH (12:09)
[2021-11-25] MEDS: PROCHLORPERAZINE 10 MG/2 ML VIAL IVP PRN (18:03)
[2021-11-26] MEDS: chlordiazePOXIDE 25 MG CAPSULE PO SCH ×3 (00:35→20:42)
[2021-11-26] MEDS: HYDROmorphone 0.5 MG/0.5 ML SYRINGE IVP PRN ×5 (00:36→20:47)
[2021-11-26] MEDS: ONDANSETRON 4 MG/2 ML VIAL IVP PRN ×2 (00:36→16:22)
[2021-11-26] MEDS: LORazepam 2 MG/ML VIAL IVP PRN ×5 (00:36→22:12)
[2021-11-26] MEDS: SODIUM CHLORIDE FLUSH 0.9% 10 ML SYRINGE IVP SCH ×3 (00:58→16:22)
[2021-11-26] MEDS: PANTOPRAZOLE 40 MG TABLET PO SCH (05:13)
[2021-11-26 05:18] LABS: ALBUMIN 3.9 g/dL (3.2-5.5); ALBUMIN/GLOBULIN RATIO 1.3 (1.0-2.2); BILIRUBIN,TOTAL 0.8 mg/dL (0.2-1.0); CALCIUM 9.1 mg/dL (8.5-10.3); CREATININE 0.6 mg/dL (0.4-1.0); MAGNESIUM 1.9 mg/dL (1.7-2.8); POTASSIUM 3.5 mmol/L (3.5-5.0)
--- NOTE | 2021-11-26 07:32 | PROVIDER PROGRESS NOTE ---
Assessment/Plan - Problem List (1) Alcohol withdrawal Assessment/Plan: On CIWA protocol Tremor improving Librium 25mg po q12hrs (2) COVID-19 Assessment/Plan: Incidental finding. Patient was asymptomatic but is now wheezing. O2Sats 94% on r/a CXR ordered. WBC 2.6. Likely 2/2 COVID If significant findings on CXR, will start Rocephin and Azithromycin empirically. - Current Meds Current Meds: Current Medications Generic Name Dose Route Start Last Admin Trade Name Freq PRN Reason Stop Dose Admin Chlordiazepoxide HCl 25 mg 11/24/21 09:00 11/26/21 00:35 Chlordiazepoxide 25 Mg Capsule PO 25 mg Q8H JENISE Administration Guaifenesin 600 mg 11/25/21 10:00 11/25/21 21:10 Guaifenesin 600 Mg Tablet PO 600 mg BID JENISE Administration Hydromorphone HCl 0.5 mg 11/24/21 06:24 11/26/21 05:13 Hydromorphone 0.5 Mg/0.5 Ml Syringe IVP 0.5 mg Q2H PRN Administration Pain 8 to 10 Lorazepam 2 mg 11/24/21 06:27 11/26/21 05:12 Lorazepam 2 Mg/Ml Vial IVP 2 mg Q30M PRN Administration CIWA >8 Protocol Ondansetron HCl 4 mg 11/24/21 06:24 11/26/21 00:36 Ondansetron 4 Mg/2 Ml Vial IVP 4 mg Q6HR PRN Administration Nausea / Vomiting Pantoprazole Sodium 40 mg 11/24/21 11:00 11/26/21 05:13 Pantoprazole 40 Mg Tablet PO 40 mg QDAC JENISE Administration Multivit/Folic Acid/Iron 1 tab 11/25/21 12:00 11/25/21 12:09 Vitamin Tablet PO 1 tab DAILYWM JENISE Administration Prochlorperazine Edisylate 10 mg 11/24/21 06:24 11/25/21 18:03 Prochlorperazine 10 Mg/2 Ml Vial IVP 10 mg Q6HR PRN Administration Nausea / Vomiting Sodium Chloride 10 ml 11/24/21 06:24 11/25/21 21:15 Sodium Chloride Flush 0.9% 10 Ml Syringe IVP 10 ml PRN PRN Administration NEEDED PER PROVIDER ORDERS Sodium Chloride 10 ml 11/24/21 09:00 11/26/21 00:58 Sodium Chloride Flush 0.9% 10 Ml Syringe IVP 10 ml 0100,0900,1700 [facility] Administration - Lab Result Fish Bone Diagrams: 11/24/21 06:40 11/26/21 04:54 - Additional Planning My Orders: My Active Orders 11/25/21 10:00 guaiFENesin [Mucinex] 600 mg PO BID Subjective - Subjective Patient Reports: Other (Is resting comfortably in bed at time of exam. Tremor persists but continues to improve daily. She denied any significant complaint. She has mild wheezes on auscultation of lungs.) Objective Vital Signs: Vital Signs - 24 hr 11/25/21 11/25/21 11/25/21 08:45 12:26 15:58 Temperature 37 C 36.8 C 37.1 C Heart Rate [ 80 85 90 Brachial] Respiratory 18 16 16 Rate Blood Pressure 119/84 H 132/88 H 138/96 H [Left Brachial artery] O2 Saturation 94 93 96 11/25/21 11/26/21 11/26/21 20:37 00:24 04:51 Temperature 37.0 C 37.1 C 36.8 C Heart Rate [ 84 95 82 Brachial] Respiratory 20 18 18 Rate Blood Pressure 129/84 H 117/80 102/67 [Left Brachial artery] O2 Saturation 94 95 92 Oxygen O2 Source Room air I&O (Last 24 Hrs): Intake and Output Totals x24h 11/24/21 11/25/21 11/26/21 23:59 23:59 23:59 Intake Total 2551.2 750 Output Total 200 2350 100 Balance 2351.2 -1600 -100 General: Alert, Oriented x3, Other (Mild tremor) HEENT: PERRLA, EOMI Neck: Supple, No JVD Neuro: Alert, Non Focal, Oriented Times 3 Cardiovascular: Regular rate, No murmurs Respiratory: Chest non-tender, No respiratory distress, Wheezes Abdomen: Normal bowel sounds, Soft Extremities: No clubbing, No cyanosis, No edema Skin: No rashes, No breakdown, No significant lesion - Results Results: Laboratory Results WBC 2.6 x10^3/uL (4.8-10.8) L 11/24/21 06:40 RBC 3.46 10^6/uL (4.20-5.40) L 11/24/21 06:40 Hgb 12.1 g/dL (12.0-16.0) 11/24/21 06:40 Hct 35.4 % (37.0-47.0) L 11/24/21 06:40 MCV 102.3 fL (81.0-99.0) H 11/24/21 06:40 MCH 35.0 pg (27.0-31.0) H 11/24/21 06:40 MCHC 34.2 g/dL (32.0-36.0) 11/24/21 06:40 RDW 12.9 % (12.0-15.0) 11/24/21 06:40 Plt Count 74 10^3/uL (130-450) L 11/24/21 06:40 MPV 10.1 fL (7.9-10.8) 11/24/21 06:40 Neut # (Auto) 1.6 10^3/uL (1.5-6.6) 11/24/21 06:40 Lymph # (Auto) 0.8 10^3/uL (1.5-3.5) L 11/24/21 06:40 [place] # (Auto) 0.3 10^3/uL (0.0-1.0) 11/24/21 06:40 Eos # (Auto) 0.0 10^3/uL (0.0-0.7) 11/24/21 06:40 Baso # (Auto) 0.0 10^3/uL (0.0-0.1) 11/24/21 06:40 Absolute Nucleated RBC 0.00 x10^3/uL 11/24/21 06:40 Total Counted ACCOUNT INSTALLATION SPECIALIST 11/24/21 06:40 Band Neuts % (Manual) Not Reportable 11/24/21 06:40 Abnorm Lymph % (Manual) Not Reportable 11/24/21 06:40 Nucleated RBC % 0.0 /100WBC 11/24/21 06:40 Neutrophils # (Manual) Not Reportable 11/24/21 06:40 Lymphocytes # (Manual) Not Reportable 11/24/21 06:40 Monocytes # (Manual) Not Reportable 11/24/21 06:40 Eosinophils # (Manual) Not Reportable 11/24/21 06:40 Basophils # (Manual) Not Reportable 11/24/21 06:40 Differential Comment MANUAL=AUTO DIFF 11/24/21 06:40 WBC Morphology NORMAL APPEARANCE (NORMAL) 11/24/21 06:40 Platelet Estimate DECREASED (<130,000) (NORMAL) 11/24/21 06:40 Platelet Morphology NORMAL APPEARANCE (NORMAL) 11/24/21 06:40 RBC Morph Micro Appear 1+ MACROCYTOSIS (NORMAL) 11/24/21 06:40 PT 13.3 secs (9.9-12.6) H 11/24/21 06:40 INR 1.2 (0.8-1.2) 11/24/21 06:40 Sodium 134 mmol/L (135-145) L 11/26/21 04:54 Potassium 3.5 mmol/L (3.5-5.0) 11/26/21 04:54 Chloride 100 mmol/L (101-111) L 11/26/21 04:54 Carbon Dioxide 25 mmol/L (21-32) 11/26/21 04:54 Anion Gap 9.0 (6-13) 11/26/21 04:54 BUN 9 mg/dL (6-20) 11/26/21 04:54 Creatinine 0.6 mg/dL (0.4-1.0) 11/26/21 04:54 Estimated GFR (MDRD) 111 (>89) 11/26/21 04:54 Glucose 110 mg/dL (70-100) H 11/26/21 04:54 Calcium 9.1 mg/dL (8.5-10.3) 11/26/21 04:54 Phosphorus 3.9 mg/dL (2.5-4.6) 11/25/21 04:56 Magnesium 1.9 mg/dL (1.7-2.8) 11/26/21 04:54 Total Bilirubin 0.8 mg/dL (0.2-1.0) 11/26/21 04:54 AST 136 IU/L (10-42) H 11/26/21 04:54 ALT 52 IU/L (10-60) 11/26/21 04:54 Alkaline Phosphatase 93 IU/L (42-121) 11/26/21 04:54 Troponin I High Sens 4.8 ng/L (2.3-14.8) 11/23/21 20:58 Total Protein 7.0 g/dL (6.7-8.2) 11/26/21 04:54 Albumin 3.9 g/dL (3.2-5.5) 11/26/21 04:54 Globulin 3.1 g/dL (2.1-4.2) 11/26/21 04:54 Albumin/Globulin Ratio 1.3 (1.0-2.2) 11/26/21 04:54 Lipase 68 U/L (22-51) H 11/23/21 20:58 Urine Color YELLOW 11/23/21 22:30 Urine Clarity CLEAR (CLEAR) 11/23/21 22:30 Urine pH 6.0 PH (5.0-7.5) 11/23/21 22:30 Ur Specific [place] 1.025 (1.002-1.030) 11/23/21 22:30 Urine Protein NEGATIVE mg/dL (NEGATIVE) 11/23/21 22:30 Urine Glucose (UA) NEGATIVE mg/dL (NEGATIVE) 11/23/21 22:30 Urine Ketones NEGATIVE mg/dL (NEGATIVE) 11/23/21 22:30 Urine Occult Blood TRACE-INTA (NEGATIVE) 11/23/21 22:30 Urine Nitrite NEGATIVE (NEGATIVE) 11/23/21 22:30 Urine Bilirubin NEGATIVE (NEGATIVE) 11/23/21 22:30 Urine Urobilinogen 1 (NORMAL) E.U./dL (NORMAL) 11/23/21 22:30 Ur Leukocyte Esterase NEGATIVE (NEGATIVE) 11/23/21 22:30 Ur Microscopic Review NOT INDICATED 11/23/21 22:30 Urine Culture Comments NOT INDICATED 11/23/21 22:30 Urine HCG, Qual NEGATIVE 11/23/21 22:30 Urine Opiates Screen POSITIVE (NEGATIVE) H 11/24/21 16:20 Ur Oxycodone Screen NEGATIVE (NEGATIVE) 11/24/21 16:20 Urine Methadone Screen NEGATIVE (NEGATIVE) 11/24/21 16:20 Ur Propoxyphene Screen NEGATIVE (NEGATIVE) 11/24/21 16:20 Ur Barbiturates Screen NEGATIVE (NEGATIVE) 11/24/21 16:20 Ur Tricyclics Screen NEGATIVE (NEGATIVE) 11/24/21 16:20 Ur Phencyclidine Scrn NEGATIVE (NEGATIVE) 11/24/21 16:20 Ur Amphetamine Screen NEGATIVE (NEGATIVE) 11/24/21 16:20 U Methamphetamines Scrn NEGATIVE (NEGATIVE) 11/24/21 16:20 U Benzodiazepines Scrn POSITIVE (NEGATIVE) H 11/24/21 16:20 Urine Cocaine Screen NEGATIVE (NEGATIVE) 11/24/21 16:20 U Cannabinoids Screen POSITIVE (NEGATIVE) H 11/24/21 16:20 Ethyl Alcohol 145.2 mg/dL 11/23/21 20:58 SARS-CoV-2 (PCR) DETECTED A 11/24/21 03:40 ABX Reporting Has patient been on IV antibiotics over the past 48 hours?: No
[2021-11-26] MEDS: guaiFENesin 600 MG TABLET PO SCH ×2 (07:54→20:42)
[2021-11-26] MEDS: PRENATAL VITAMIN TABLET PO SCH (07:55)
[2021-11-26] MEDS: SODIUM CHLORIDE FLUSH 0.9% 10 ML SYRINGE IVP PRN ×3 (07:56→22:12)
--- NOTE | 2021-11-26 11:22 | XRAY Report ---
PROCEDURE: Chest 1 View X-Ray INDICATIONS: wheezing COMMENTS: Covid +, SOB today PRIORS: 09-01-08 TECHNIQUE: One view of the chest was acquired. COMPARISON: None FINDINGS: Surgical changes and devices: None. Lungs and pleura: No pleural effusions or pneumothorax. Lungs are clear. Mediastinum: Mediastinal contours appear normal. Heart size is normal. Bones and chest wall: No suspicious bony lesions. Overlying soft tissues appear unremarkable. IMPRESSION: Normal chest x-ray Reviewed by: Nikko Mcginnis on 11/26/2021 10:21 AM [facility] Approved by: Nikko Mcginnis on 11/26/2021 10:21 AM [facility] Station ID: [id number]
[2021-11-26] MEDS: SENNA 8.6 MG TABLET PO SCH (20:42)
[2021-11-26] MEDS: DOCUSATE SODIUM 250 MG CAPSULE PO SCH (20:43)
[2021-11-26] MEDS: PROCHLORPERAZINE 10 MG/2 ML VIAL IVP PRN (20:47)
[2021-11-27] MEDS: HYDROmorphone 0.5 MG/0.5 ML SYRINGE IVP PRN ×2 (01:19→05:42)
[2021-11-27] MEDS: SODIUM CHLORIDE FLUSH 0.9% 10 ML SYRINGE IVP SCH ×3 (01:21→16:16)
[2021-11-27] MEDS: ONDANSETRON 4 MG/2 ML VIAL IVP PRN ×3 (01:21→17:02)
[2021-11-27] MEDS: LORazepam 2 MG/ML VIAL IVP PRN ×7 (01:21→21:20)
[2021-11-27 05:38] LABS: ALBUMIN 3.8 g/dL (3.2-5.5); ALBUMIN/GLOBULIN RATIO 1.1 (1.0-2.2); BILIRUBIN,TOTAL 0.9 mg/dL (0.2-1.0); CREATININE 0.6 mg/dL (0.4-1.0); MAGNESIUM 1.8 mg/dL (1.7-2.8); POTASSIUM 3.6 mmol/L (3.5-5.0); TOTAL PROTEIN 7.2 g/dL (6.7-8.2)
[2021-11-27] MEDS: PANTOPRAZOLE 40 MG TABLET PO SCH (05:42)
[2021-11-27] MEDS: PRENATAL VITAMIN TABLET PO SCH (07:49)
[2021-11-27] MEDS: guaiFENesin 600 MG TABLET PO SCH ×2 (07:49→21:20)
[2021-11-27] MEDS: DOCUSATE SODIUM 250 MG CAPSULE PO SCH (07:50)
[2021-11-27] MEDS: SENNA 8.6 MG TABLET PO SCH (07:50)
[2021-11-27] MEDS: chlordiazePOXIDE 25 MG CAPSULE PO SCH ×3 (07:50→21:20)
[2021-11-27 08:04] LABS: BASOPHILS % (AUTO) 0.4 %; EOSINOPHILS % (AUTO) 0.7 %; HCT - HEMATOCRIT 36.7 % (37.0-47.0); HGB - HEMOGLOBIN 12.4 g/dL (12.0-16.0); LYMPHOCYTES # (AUTO) 1.2 10^3/uL (1.5-3.5); LYMPHOCYTES % (AUTO) 26.9 %; MEAN CORPUSCULAR HEMOGLOBIN 33.8 pg (27.0-31.0); MEAN CORPUSCULAR HGB CONC 33.8 g/dL (32.0-36.0); MEAN PLATELET VOLUME 12.3 fL (7.9-10.8); MONOCYTES # (AUTO) 0.5 10^3/uL (0.0-1.0); MONOCYTES % (AUTO) 10.3 %; NEUTROPHILS # (AUTO) 2.7 10^3/uL (1.5-6.6); NEUTROPHILS % (AUTO) 61.3 %; NRBC ABSOLUTE COUNT (AUTO) 0.03 x10^3/uL; NUCLEATED RED BLOOD CELLS AUTO 0.7 /100WBC; PLT - PLATELET COUNT 82 10^3/uL (130-450); RED BLOOD COUNT 3.67 10^6/uL (4.20-5.40); RED CELL DISTRIBUTION WIDTH 12.5 % (12.0-15.0); WHITE BLOOD COUNT 4.5 x10^3/uL (4.8-10.8)
--- NOTE | 2021-11-27 08:22 | PROVIDER PROGRESS NOTE ---
Assessment/Plan - Problem List (1) Alcohol withdrawal Assessment/Plan: On CIWA protocol Due to a CIWA score of 8 and 10, persistent tremor and several episodes of anxiety/panic, Librium was increased to 3 times daily On Librium 25mg po q8hrs (2) COVID-19 Assessment/Plan: Incidental finding. Patient was asymptomatic. Despite wheezing CXR done 11/26/21 was normal. O2Sats 97% on r/a WBC 4.5. Likely 2/2 COVID Will continue to hold off on any treatment - Current Meds Current Meds: Current Medications Generic Name Dose Route Start Last Admin Trade Name Freq PRN Reason Stop Dose Admin Chlordiazepoxide HCl 25 mg 11/26/21 21:00 11/27/21 07:50 Chlordiazepoxide 25 Mg Capsule PO 25 mg Q12H JENISE Administration Docusate Sodium 250 - 500 mg 11/26/21 21:00 11/27/21 07:50 Docusate Sodium 250 Mg Capsule PO 250 mg DAILY JENISE Administration Guaifenesin 600 mg 11/25/21 10:00 11/27/21 07:49 Guaifenesin 600 Mg Tablet PO 600 mg BID JENISE Administration Hydromorphone HCl 0.5 mg 11/24/21 06:24 11/27/21 05:42 Hydromorphone 0.5 Mg/0.5 Ml Syringe IVP 0.5 mg Q2H PRN Administration Pain 8 to 10 Lorazepam 2 mg 11/24/21 06:27 11/27/21 07:50 Lorazepam 2 Mg/Ml Vial IVP 2 mg Q30M PRN Administration CIWA >8 Protocol Ondansetron HCl 4 mg 11/24/21 06:24 11/27/21 07:50 Ondansetron 4 Mg/2 Ml Vial IVP 4 mg Q6HR PRN Administration Nausea / Vomiting Pantoprazole Sodium 40 mg 11/24/21 11:00 11/27/21 05:42 Pantoprazole 40 Mg Tablet PO 40 mg QDAC JENISE Administration Multivit/Folic Acid/Iron 1 tab 11/25/21 12:00 11/27/21 07:49 Vitamin Tablet PO 1 tab DAILYWM JENISE Administration Prochlorperazine Edisylate 10 mg 11/24/21 06:24 11/26/21 20:47 Prochlorperazine 10 Mg/2 Ml Vial IVP 10 mg Q6HR PRN Administration Nausea / Vomiting Senna 8.6 - 17.2 mg 11/26/21 21:00 11/27/21 07:50 Senna 8.6 Mg Tablet PO 8.6 mg DAILY JENISE Administration Sodium Chloride 10 ml 11/24/21 06:24 11/26/21 22:12 Sodium Chloride Flush 0.9% 10 Ml Syringe IVP 10 ml PRN PRN Administration NEEDED PER PROVIDER ORDERS Sodium Chloride 10 ml 11/24/21 09:00 11/27/21 07:52 Sodium Chloride Flush 0.9% 10 Ml Syringe IVP 10 ml 0100,0900,1700 JENISE Administration - Lab Result Fish Bone Diagrams: 11/27/21 05:25 11/27/21 05:15 - Additional Planning My Orders: My Active Orders 11/26/21 21:00 chlordiazePOXIDE [Librium] 25 mg PO Q12H 11/28/21 05:00 BMP - BASIC METABOLIC PANEL [CHEM] DAILYLAB CBC - COMP BLD CT W/AUTO DIFF [HEME] DAILYLAB 11/29/21 05:00 BMP - BASIC METABOLIC PANEL [CHEM] DAILYLAB CBC - COMP BLD CT W/AUTO DIFF [HEME] DAILYLAB 11/30/21 05:00 BMP - BASIC METABOLIC PANEL [CHEM] DAILYLAB CBC - COMP BLD CT W/AUTO DIFF [HEME] DAILYLAB 12/01/21 05:00 BMP - BASIC METABOLIC PANEL [CHEM] DAILYLAB CBC - COMP BLD CT W/AUTO DIFF [HEME] DAILYLAB 12/02/21 05:00 BMP - BASIC METABOLIC PANEL [CHEM] DAILYLAB CBC - COMP BLD CT W/AUTO DIFF [HEME] DAILYLAB Subjective - Subjective Patient Reports: Other (Patient continues to be tremulous. She scored 8 and subsequently 10 on the CIWA score today. This is slightly higher than the previous day when she scored 6. She also seemed to have episodes of anxiety. She is wheezy on auscultation but does not appear to be in respiratory distress.) Objective Vital Signs: Vital Signs - 24 hr 11/26/21 11/26/21 11/26/21 11:09 13:10 16:05 Temperature 36.2 C L 36.4 C L Heart Rate [ 99 87 98 Brachial] Respiratory 18 18 19 Rate Blood Pressure 125/83 H 118/78 117/85 H [Left Brachial artery] O2 Saturation 94 95 93 11/26/21 11/27/21 11/27/21 20:38 01:28 05:34 Temperature 36.5 C 37 C 36.5 C Heart Rate [ 95 91 94 Brachial] Respiratory 18 16 16 Rate Blood Pressure 137/82 H 113/73 113/73 [Left Brachial artery] O2 Saturation 94 94 96 11/27/21 07:45 Temperature 36.9 C Heart Rate [ 99 Brachial] Respiratory 20 Rate Blood Pressure 105/71 [Left Brachial artery] O2 Saturation 96 Oxygen O2 Source Room air I&O (Last 24 Hrs): Intake and Output Totals x24h 11/25/21 11/26/21 11/27/21 23:59 23:59 23:59 Intake Total 750 1210 350 Output Total 2350 300 Balance -1600 910 350 Comments/Notes: General: Alert, Oriented x3, Other (Mild tremor) HEENT: PERRLA, EOMI Neck: Supple, No JVD Neuro: Alert, Non Focal, Oriented Times 3 Cardiovascular: Regular rate, No murmurs Respiratory: Chest non-tender, No respiratory distress, Wheezes Abdomen: Normal bowel sounds, Soft Extremities: No clubbing, No cyanosis, No edema Skin: No rashes, No breakdown, No significant lesion - Results Results: Laboratory Results WBC 4.5 x10^3/uL (4.8-10.8) L 11/27/21 05:25 RBC 3.67 10^6/uL (4.20-5.40) L 11/27/21 05:25 Hgb 12.4 g/dL (12.0-16.0) 11/27/21 05:25 Hct 36.7 % (37.0-47.0) L 11/27/21 05:25 MCV 100.0 fL (81.0-99.0) H 11/27/21 05:25 MCH 33.8 pg (27.0-31.0) H 11/27/21 05:25 MCHC 33.8 g/dL (32.0-36.0) 11/27/21 05:25 RDW 12.5 % (12.0-15.0) 11/27/21 05:25 Plt Count 82 10^3/uL (130-450) L 11/27/21 05:25 MPV 12.3 fL (7.9-10.8) H 11/27/21 05:25 Neut # (Auto) 2.7 10^3/uL (1.5-6.6) 11/27/21 05:25 Lymph # (Auto) 1.2 10^3/uL (1.5-3.5) L 11/27/21 05:25 [place] # (Auto) 0.5 10^3/uL (0.0-1.0) 11/27/21 05:25 Eos # (Auto) 0.0 10^3/uL (0.0-0.7) 11/27/21 05:25 Baso # (Auto) 0.0 10^3/uL (0.0-0.1) 11/27/21 05:25 Absolute Nucleated RBC 0.03 x10^3/uL 11/27/21 05:25 Total Counted CHRONIC DISEASE EPIDEMIOLOGIST 11/24/21 06:40 Band Neuts % (Manual) Not Reportable 11/24/21 06:40 Abnorm Lymph % (Manual) Not Reportable 11/24/21 06:40 Nucleated RBC % 0.7 /100WBC 11/27/21 05:25 Neutrophils # (Manual) Not Reportable 11/24/21 06:40 Lymphocytes # (Manual) Not Reportable 11/24/21 06:40 Monocytes # (Manual) Not Reportable 11/24/21 06:40 Eosinophils # (Manual) Not Reportable 11/24/21 06:40 Basophils # (Manual) Not Reportable 11/24/21 06:40 Differential Comment MANUAL=AUTO DIFF 11/24/21 06:40 WBC Morphology NORMAL APPEARANCE (NORMAL) 11/24/21 06:40 Platelet Estimate DECREASED (<130,000) (NORMAL) 11/24/21 06:40 Platelet Morphology NORMAL APPEARANCE (NORMAL) 11/24/21 06:40 RBC Morph Micro Appear 1+ MACROCYTOSIS (NORMAL) 11/24/21 06:40 PT 13.3 secs (9.9-12.6) H 11/24/21 06:40 INR 1.2 (0.8-1.2) 11/24/21 06:40 Sodium 131 mmol/L (135-145) L 11/27/21 05:15 Potassium 3.6 mmol/L (3.5-5.0) 11/27/21 05:15 Chloride 96 mmol/L (101-111) L 11/27/21 05:15 Carbon Dioxide 25 mmol/L (21-32) 11/27/21 05:15 Anion Gap 10.0 (6-13) 11/27/21 05:15 BUN 8 mg/dL (6-20) 11/27/21 05:15 Creatinine 0.6 mg/dL (0.4-1.0) 11/27/21 05:15 Estimated GFR (MDRD) 111 (>89) 11/27/21 05:15 Glucose 110 mg/dL (70-100) H 11/27/21 05:15 Calcium 9.0 mg/dL (8.5-10.3) 11/27/21 05:15 Phosphorus 3.9 mg/dL (2.5-4.6) 11/25/21 04:56 Magnesium 1.8 mg/dL (1.7-2.8) 11/27/21 05:15 Total Bilirubin 0.9 mg/dL (0.2-1.0) 11/27/21 05:15 AST 90 IU/L (10-42) H 11/27/21 05:15 ALT 46 IU/L (10-60) 11/27/21 05:15 Alkaline Phosphatase 88 IU/L (42-121) 11/27/21 05:15 Troponin I High Sens 4.8 ng/L (2.3-14.8) 11/23/21 20:58 Total Protein 7.2 g/dL (6.7-8.2) 11/27/21 05:15 Albumin 3.8 g/dL (3.2-5.5) 11/27/21 05:15 Globulin 3.4 g/dL (2.1-4.2) 11/27/21 05:15 Albumin/Globulin Ratio 1.1 (1.0-2.2) 11/27/21 05:15 Lipase 68 U/L (22-51) H 11/23/21 20:58 Urine Color YELLOW 11/23/21 22:30 Urine Clarity CLEAR (CLEAR) 11/23/21 22:30 Urine pH 6.0 PH (5.0-7.5) 11/23/21 22:30 Ur Specific [place] 1.025 (1.002-1.030) 11/23/21 22:30 Urine Protein NEGATIVE mg/dL (NEGATIVE) 11/23/21 22:30 Urine Glucose (UA) NEGATIVE mg/dL (NEGATIVE) 11/23/21 22:30 Urine Ketones NEGATIVE mg/dL (NEGATIVE) 11/23/21 22:30 Urine Occult Blood TRACE-INTA (NEGATIVE) 11/23/21 22:30 Urine Nitrite NEGATIVE (NEGATIVE) 11/23/21 22:30 Urine Bilirubin NEGATIVE (NEGATIVE) 11/23/21 22:30 Urine Urobilinogen 1 (NORMAL) E.U./dL (NORMAL) 11/23/21 22:30 Ur Leukocyte Esterase NEGATIVE (NEGATIVE) 11/23/21 22:30 Ur Microscopic Review NOT INDICATED 11/23/21 22:30 Urine Culture Comments NOT INDICATED 11/23/21 22:30 Urine HCG, Qual NEGATIVE 11/23/21 22:30 Urine Opiates Screen POSITIVE (NEGATIVE) H 11/24/21 16:20 Ur Oxycodone Screen NEGATIVE (NEGATIVE) 11/24/21 16:20 Urine Methadone Screen NEGATIVE (NEGATIVE) 11/24/21 16:20 Ur Propoxyphene Screen NEGATIVE (NEGATIVE) 11/24/21 16:20 Ur Barbiturates Screen NEGATIVE (NEGATIVE) 11/24/21 16:20 Ur Tricyclics Screen NEGATIVE (NEGATIVE) 11/24/21 16:20 Ur Phencyclidine Scrn NEGATIVE (NEGATIVE) 11/24/21 16:20 Ur Amphetamine Screen NEGATIVE (NEGATIVE) 11/24/21 16:20 U Methamphetamines Scrn NEGATIVE (NEGATIVE) 11/24/21 16:20 U Benzodiazepines Scrn POSITIVE (NEGATIVE) H 11/24/21 16:20 Urine Cocaine Screen NEGATIVE (NEGATIVE) 11/24/21 16:20 U Cannabinoids Screen POSITIVE (NEGATIVE) H 11/24/21 16:20 Ethyl Alcohol 145.2 mg/dL 11/23/21 20:58 SARS-CoV-2 (PCR) DETECTED A 11/24/21 03:40 ABX Reporting Has patient been on IV antibiotics over the past 48 hours?: No
[2021-11-27] MEDS: PROCHLORPERAZINE 10 MG/2 ML VIAL IVP PRN (12:37)
[2021-11-27] MEDS: SODIUM CHLORIDE FLUSH 0.9% 10 ML SYRINGE IVP PRN (12:38)
[2021-11-27] MEDS ORDERED: diphenhydrAMINE 25 MG CAPSULE PO PRN (12:39)
--- NOTE | 2021-11-27 15:13 | PHARMACY PROGRESS NOTE ---
- Best Possible Medication History Admit Date and Time: 11/24/21622 Processed by: Pharmacy Medication History completed: Yes Patient Interview: Completed Secondary Source(s): Physician records, Pharmacy records, Insurance records As the person ultimately responsible for medication therapy, providers are able to order a medication from an existing home medication list in [facility] via the "Reconcile Routine" prior to Confirmation of that medication by program support specialist. Such practice is discouraged except when the physician, in their clinical judgment, deems that a medical need exists for a medication without regard to previous use.
[2021-11-27] MEDS ORDERED: OLANZapine ODT 5 MG TABLET TL STA (18:27)
[2021-11-28] MEDS: SODIUM CHLORIDE FLUSH 0.9% 10 ML SYRINGE IVP SCH ×2 (00:55→07:53)
[2021-11-28] MEDS: chlordiazePOXIDE 25 MG CAPSULE PO SCH (05:15)
[2021-11-28] MEDS: PANTOPRAZOLE 40 MG TABLET PO SCH (05:16)
[2021-11-28 06:23] LABS: BASOPHILS % (AUTO) 0.5 %; EOSINOPHILS % (AUTO) 0.5 %; HCT - HEMATOCRIT 35.9 % (37.0-47.0); HGB - HEMOGLOBIN 12.3 g/dL (12.0-16.0); LYMPHOCYTES % (AUTO) 30.4 %; MEAN CORPUSCULAR HEMOGLOBIN 34.3 pg (27.0-31.0); MEAN CORPUSCULAR HGB CONC 34.3 g/dL (32.0-36.0); MEAN PLATELET VOLUME 10.7 fL (7.9-10.8); MONOCYTES % (AUTO) 14.2 %; NEUTROPHILS % (AUTO) 53.9 %; PLT - PLATELET COUNT 106 10^3/uL (130-450); RED BLOOD COUNT 3.59 10^6/uL (4.20-5.40); RED CELL DISTRIBUTION WIDTH 12.5 % (12.0-15.0); WHITE BLOOD COUNT 5.6 x10^3/uL (4.8-10.8)
[2021-11-28 06:29] LABS: CALCIUM 8.9 mg/dL (8.5-10.3); CREATININE 0.6 mg/dL (0.4-1.0); POTASSIUM 3.3 mmol/L (3.5-5.0)
[2021-11-28 06:52] LABS: ABNORMAL LYMPHS % (MANUAL) 1 %; BAND NEUTROPHILS % (MANUAL) 1 %; LYMPHOCYTES # (MANUAL) 1.9 10^3/uL (1.5-3.5); LYMPHOCYTES % (MANUAL) 33 %; MONOCYTES # (MANUAL) 0.6 10^3/uL (0.0-1.0); NEUTROPHILS # (MANUAL) 3.1 10^3/uL (1.5-6.6)
[2021-11-28 06:53] LABS: DIFFERENTIAL COMMENT MANUAL DIFFERENTIAL; PLATELET ESTIMATE, MANUAL DECREASED (<130,000) (NORMAL); PLATELET MORPHOLOGY NORMAL APPEARANCE (NORMAL); RBC MORPHOLOGY (MULTIPLE) NORMAL APPEARANCE (NORMAL); WBC MORPHOLOGY (MULTIPLE) NORMAL APPEARANCE (NORMAL)
[2021-11-28 07:49] VITALS: BP 102/65
[2021-11-28] MEDS: SENNA 8.6 MG TABLET PO SCH (07:52)
[2021-11-28] MEDS: PRENATAL VITAMIN TABLET PO SCH (07:52)
[2021-11-28] MEDS: DOCUSATE SODIUM 250 MG CAPSULE PO SCH (07:52)
[2021-11-28] MEDS: guaiFENesin 600 MG TABLET PO SCH (07:52)
[2021-11-28] MEDS ORDERED: IBUPROFEN 400 MG TABLET PO PRN (08:09)
[2021-11-28] MEDS ORDERED: POTASSIUM CHLORIDE 20 MEQ TABLET PO ONE (08:10)
[2021-11-28] MEDS ORDERED: PROPRANOLOL 40 MG TABLET PO SCH (09:00)
[2021-11-28] MEDS ORDERED: CITALOPRAM HYDROBROMIDE 20 MG TABLET PO SCH (09:00)
[2021-11-28] MEDS: ONDANSETRON 4 MG/2 ML VIAL IVP PRN (09:33)
--- NOTE | 2021-11-28 12:04 | Discharge Plan ---
Discharge Plan Problem Reviewed?: Yes Disposition: Home, Self Care Condition: Stable Prescriptions: chlordiazePOXIDE [Librium] 25 mg PO BID #5 cap Thiamine [Vitamin B-1] 100 mg PO DAILY #30 tablet Ondansetron Odt [Zofran Odt] 4 mg TL Q6H PRN #10 tablet PRN Reason: Nausea / Vomiting Diet: Regular Activity Restrictions: Activity as Tolerated Driving Restrictions: Yes (Do not drive while taking librium.) Health Concerns: You were admitted to the hospital because of alcohol withdrawal. We treated you with Ativan intravenously to help manage her symptoms. You have since improved and you are now stable for discharge home. You will continue on Librium for 3 more days as a taper. You also tested positive for COVID-19 but fortunately did not have any symptoms. We still recommend that you wear a mask for 10 days which will be until December 03 and to quarantine at home. Plan of Treatment: Please take Librium this afternoon and tonight before sleeping. Tomorrow you will take it in the morning and at night. The following day you will take it just at night. I have provided you with a total of 5 tablets for these doses. Please refrain from alcohol consumption as this can lead to cirrhosis. Care Goals: The goal is to limit your alcohol use to prevent progression to liver cirrhosis and prevent future episodes of withdrawal. Assessment: The patient expressed understanding of the treatment plan. Additional Instructions or Follow Up instructions: Please follow-up with your primary care physician in 1 to 2 weeks. No Smoking: If you smoke, Please STOP! Call for help. Follow-up with: Rebecca Rodriguez DO [Primary Care Provider] -
--- NOTE | 2021-11-28 12:23 | DISCHARGE SUMMARY ---
"Discharge Summary Admit Date: 11/24/21 Discharge Date: 11/28/21 Discharging Provider: Bala Torres Primary Care Provider: Rebecca Rodriguez Code Status: Attempt Resuscitation Condition at Discharge: Stable Discharge Disposition: 01 Home, Self Care - DIAGNOSES Admission Diagnoses: Alcohol withdrawal COVID-19 Discharge Diagnoses with Status of Each Condition: Alcohol withdrawal - improved and nearly resolved. COVID-19 - stable. - HPI History of Present Illness: H&P per Dr. Robertu: 41-year-old female with medical history significant for asthma, anxiety, GERD and alcohol abuse with history of alcohol withdrawal who presented to the ED with complaint of shaking, vomiting and diaphoresis. This started yesterday 11/23/2021 around 3 PM. She normally drinks about 12 cans of beer daily. She la st drank beer yesterday afternoon. She drank Melissa light 16 ounces, 4 to 6 cans. The ED her alcohol level was 152. She scored a 32 on a CIWA. As a result she was presented for admission for continued treatment of alcohol withdrawal. She has [facility] and [facility] in July 2021 where she stayed for 42 days. Currently she denies chest pain, abdominal pain, nausea, vomiting, fever or chil ls. She also denies dyspnea. As part of her work-up for admission she had a COVID-19 test done in the ED which was positive. She denies knowingly being around somebody sick. She is unvaccinated for COVID. - CONSULTS | PROCEDURES Consultations: Social work - HOSPITAL COURSE Hospital Course: She was admitted to the floor for alcohol withdrawal. She was noted to be COVID-positive on admission but she had no symptoms. She required IV Ativan as well as Librium to manage her withdrawal symptoms. This was slowly tapered over 3 days. On the day of discharge, she no longer received Ativan and was just on the Librium. She still had a mild evidence of withdrawal with mild tremulousness but was no longer tachycardic, diaphoretic. The patient felt much improved and requested to go home and so she was discharged with a Librium taper. She was asked take Librium this afternoon and in the evening followed by twice daily the following day and then once in the evening the day after. She expressed understanding of this. She was counseled by the staff on the importance of not driving while taking Librium. She was also counseled on the importance of wearing a mask for 10 days since admission which would be December 03 given she did test positive for COVID-19. - ALLERGIES Allergies/Adverse Reactions: Allergies Allergy/AdvReac Type Severity Reaction Status Date / Time No Known Drug Allergies Allergy Verified 11/23/21 20:06 - MEDICATIONS Home Medications: Ambulatory Orders Medication Instructions Recorded Confirmed traZODone [Desyrel] 50 mg PO HS PRN 08/08/20 11/24/21 Albuterol Sulfate [Proair Hfa 2 puffs IH Q4HR PRN 11/28/20 11/24/21 Inhaler] Gabapentin [Neurontin] 300 mg PO TID 11/28/20 11/24/21 Citalopram Hydrobromide 40 mg PO DAILY 11/24/21 11/24/21 [Citalopram HBr] Omeprazole 40 mg PO QDAC 11/24/21 11/24/21 Propranolol [Inderal] 40 mg PO DAILY 11/24/21 11/24/21 hydrOXYzine HCL [Hydroxyzine HCl] 25 mg PO TID PRN 11/24/21 11/24/21 methocarbamoL [Robaxin] 500 mg PO QID PRN 11/24/21 11/24/21 Ondansetron Odt [Zofran Odt] 4 mg TL Q6H PRN #10 tablet 11/28/21 Thiamine [Vitamin B-1] 100 mg PO DAILY #30 tablet 11/28/21 chlordiazePOXIDE [Librium] 25 mg PO BID #5 cap 11/28/21 - PHYSICAL EXAM AT DISCHARGE General Appearance: positive: No acute distress, Alert Eyes Bilateral: positive: Normal inspection, Conjunctivae nml ENT: positive: ENT inspection nml Neck: positive: Nml inspection Respiratory: positive: No respiratory distress. negative: Wheezes, Rales Cardiovascular: positive: Regular rate & rhythm, No murmur. negative: Tachycardia Abdomen: positive: Non-tender, No distention. negative: Tenderness Skin: positive: Warm, Dry Extremities: positive: Other (Very mild tremors in the bilateral upper extremity) Neurologic/Psychiatric: positive: Motor nml. negative: Disoriented to person, Disoriented to place, Disoriented to time Physical Exam Other/Comments: Vital Signs - 24 hr 11/27/21 11/28/21 11/28/21 21:00 01:00 05:00 Temperature 37 C 37.0 C 36.8 C Heart Rate [ 93 88 74 Brachial] Respiratory 18 16 18 Rate Blood Pressure 101/69 100/58 L [Left Brachial artery] Blood Pressure 111/78 [Right Brachial artery] O2 Saturation 96 96 96 11/28/21 07:47 Temperature 36.7 C Heart Rate [ 89 Brachial] Respiratory 16 Rate Blood Pressure [Left Brachial artery] Blood Pressure 102/65 [Right Brachial artery] O2 Saturation Oxygen O2 Source Room air - LABS Result Diagrams: 11/28/21 06:15 11/28/21 06:15 - DIAGNOSTIC IMAGING Diagnostic Imaging Results: Final report reviewed - FOLLOW UP Follow Up: She was instructed to follow-up with her primary care physician in 1 to 2 weeks - TIME SPENT Time Spent in Discharge (Minutes): 32"
== END 2021-11-28 12:50 | disposition home or self-care (01) | DRG 896 ==
LOC: ED 19:53 → MS2 11-24 06:23
PROVIDERS: ADMIT Internal Medicine; ATTEND Internal Medicine
DX: F10.139 Alcohol abuse with withdrawal, unspecified (principal); U07.1 COVID-19; J45.909 Unspecified asthma, uncomplicated; F17.200 Nicotine dependence, unspecified, uncomplicated; F41.0 Panic disorder [episodic paroxysmal anxiety]; F41.9 Anxiety disorder, unspecified; K21.9 Gastro-esophageal reflux disease without esophagitis; Y90.6 Blood alcohol level of 120-199 mg/100 ml; Z28.310 Unvaccinated for COVID-19; Z32.02 Encounter for pregnancy test, result negative; Z79.899 Other long term (current) drug therapy
CPT/HCPCS: 36415; 71045; 74176; 80048; 80053; 80306; 80320; 81003; 81025; 83690; 83735; 84100; 84484; 85025; 85610; 87635; 93005; 94640; 96374; 96375; 96376; 99285; 99291; A9270; J1170; J2060; J3411; J8499; 81001; 87086

== ENCOUNTER 2022-04-17 08:00 | Outpatient (CLI) | payer MEDICAID ==
[2022-04-17 12:18] LABS: BASOPHILS % (AUTO) 0.6 %; EOSINOPHILS # (AUTO) 0.1 10^3/uL (0.0-0.7); EOSINOPHILS % (AUTO) 1.9 %; HCT - HEMATOCRIT 40.1 % (37.0-47.0); HGB - HEMOGLOBIN 13.5 g/dL (12.0-16.0); LYMPHOCYTES # (AUTO) 1.9 10^3/uL (1.5-3.5); LYMPHOCYTES % (AUTO) 27.5 %; MEAN CORPUSCULAR HEMOGLOBIN 31.9 pg (27.0-31.0); MEAN CORPUSCULAR HGB CONC 33.7 g/dL (32.0-36.0); MEAN CORPUSCULAR VOLUME 94.8 fL (81.0-99.0); MEAN PLATELET VOLUME 10.3 fL (7.9-10.8); MONOCYTES # (AUTO) 0.7 10^3/uL (0.0-1.0); MONOCYTES % (AUTO) 9.8 %; NEUTROPHILS # (AUTO) 4.2 10^3/uL (1.5-6.6); NEUTROPHILS % (AUTO) 59.9 %; PLT - PLATELET COUNT 298 10^3/uL (130-450); RED BLOOD COUNT 4.23 10^6/uL (4.20-5.40); RED CELL DISTRIBUTION WIDTH 12.6 % (12.0-15.0)
[2022-04-17 13:36] LABS: ALBUMIN 4.2 g/dL (3.2-5.5); ALBUMIN/GLOBULIN RATIO 1.2 (1.0-2.2); ALKALINE PHOSPHATASE 64 IU/L (42-121); ALT ALANINE AMINOTRANSFERASE 17 IU/L (10-60); AST ASPARTATE AMINOTRANSFERASE 17 IU/L (10-42); BILIRUBIN,TOTAL 0.4 mg/dL (0.2-1.0); BUN - BLOOD UREA NITROGEN 16 mg/dL (6-20); CALCIUM 8.9 mg/dL (8.5-10.3); CARBON DIOXIDE - CO2 22 mmol/L (21-32); CHLORIDE 103 mmol/L (101-111); CREATININE 0.6 mg/dL (0.4-1.0); GFR - MDRD 111 (>89); GLUCOSE 103 mg/dL (70-100); POTASSIUM 4.5 mmol/L (3.5-5.0); SODIUM 134 mmol/L (135-145); TOTAL PROTEIN 7.7 g/dL (6.7-8.2)
[2022-04-17 13:39] LABS: CRP - C-REACTIVE PROTEIN < 1.0 mg/dL (0-1.0)
[2022-04-17 13:45] LABS: THYROID STIMULATING HORMONE 1.68 uIU/mL (0.34-5.60)
[2022-04-17 13:56] LABS: FOLATE 17.71 ng/mL (5.90 - >24.8)
== END 2022-04-17 23:59 | disposition home or self-care (01) ==
LOC: LAB.N 08:00
PROVIDERS: ATTEND Family Medicine
DX: G62.9 Polyneuropathy, unspecified (principal); M12.9 Arthropathy, unspecified
CPT/HCPCS: 36415; 80053; 82607; 82746; 84443; 85025; 85651; 86140

== ENCOUNTER 2023-12-04 23:16 | Outpatient (CLI) | payer SELFPAY | END 2023-12-04 23:59 | disposition critical access hospital (66) | LOC: EMS 23:16 | DX: S50.01XA Contusion of right elbow, initial encounter (principal); W18.39XA Other fall on same level, initial encounter | CPT/HCPCS: A0425; A0429 ==

== ENCOUNTER 2023-12-04 23:35 | Emergency (ER) | payer SELFPAY ==
[2023-12-04 23:44] VITALS: BP 115/75; O2SAT 98
--- NOTE | 2023-12-04 23:45 | ED Physician Documentation ---
PD HPI UPPER EXT INJURY - Stated complaint Stated Complaint: FELL YESTERDAY, RT ELBOW BRUISING - Chief complaint Chief Complaint: Trauma Ext - History obtained from History obtained from: Patient, EMS - Additonal information Additional information: 43-year-old female with history of alcohol use disorder presents by EMS from [facility] stabilization facility for evaluation of right elbow injury. Yesterday patient fell from a 4 foot fence and landed on her left elbow. She denies hitting her head or any other injury. Today she decided to check into detox for stabilization and the facility requested that she be evaluated for possible fracture of her forearm. Patient reports pain in her elbow but states that if she had not been required by the detox facility to seek evaluation she would have not come at all concerning her elbow. Denies numbness, weakness, tingling Review of Systems Constitutional: denies: Fever, Chills Musculoskeletal: reports: Extremity pain, Joint pain, Extremity swelling. 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 : None HEENT: None Psych: Anxiety Musculoskeletal: None Derm: None - Past Surgical History Past Surgical History: No /ADJUSTO WRITER OPERATOR: Other - Present Medications Home Medications: Ambulatory Orders Medication Instructions Recorded Confirmed Albuterol Sulfate [Proair Hfa 2 puffs IH Q4HR PRN 11/28/20 12/04/23 Inhaler] Gabapentin [Neurontin] 300 mg PO TID 11/28/20 11/24/21 Citalopram Hydrobromide 40 mg PO DAILY 11/24/21 11/24/21 [Citalopram HBr] Propranolol [Inderal] 40 mg PO DAILY 11/24/21 12/04/23 hydrOXYzine HCL [Hydroxyzine HCl] 25 mg PO TID PRN 11/24/21 11/24/21 methocarbamoL [Robaxin] 500 mg PO QID PRN 11/24/21 12/04/23 chlordiazePOXIDE [Librium] 25 mg PO BID #5 cap 11/28/21 - Allergies Allergies/Adverse Reactions: Allergies Allergy/AdvReac Type Severity Reaction Status Date / Time No Known Drug Allergies Allergy Verified 12/04/23 23:42 - Social History Does the pt smoke?: Yes Smoking Status: Current every day smoker Does the pt drink ETOH?: Yes Does the pt have substance abuse?: No - Immunizations Immunizations are current?: Yes - POLST Patient has POLST: No POLST Status: Full Code PD ED PE NORMAL - Vitals Vital signs reviewed: Yes - General General: Alert and oriented X 3, No acute distress - HEENT HEENT: Atraumatic, PERRL, EOMI - Derm Derm: Warm and dry, Other (contusion distal inner bicep) - Extremities Extremities: Other (contusion distal RUE near elbow) - Neuro Neuro: Alert and oriented X 3, director hr communications 2-12 intact, No motor deficit, Normal speech Results - Vitals Vitals: Vital Signs - 24 hr 12/04/23 23:40 Temperature 36.4 C L Heart Rate 84 Respiratory 16 Rate Blood Pressure 115/75 O2 Saturation 98 Oxygen O2 Source Room air PD Medical Decision Making - ED course Complexity details: reviewed results, re-evaluated patient, considered differential, d/w patient ED course: Patient brought in for elbow pain. She does have a contusion on her left elbow but no deformity, neurovascular intact. Full range of motion. X-ray imaging negative for acute findings. Tylenol and ibuprofen as well as ice recommended as needed for discomfort. Patient given thiamine and folic acid in the emergency department due to history of alcohol use disorder. Patient medically cleared, she was picked up by staff at [facility] to take to detox Departure - Departure Disposition: 01 Home, Self Care Clinical Impression: Elbow injury, Contusion of elbow Condition: Stable Instructions: ED Contusion Elbow Comments: Your x-ray imaging did not show any acute fracture. Take Tylenol and ibuprofen as needed for pain or discomfort. Apply ice to areas of swelling. Forms: PCP List Discharge Date/Time: 12/05/23 01:55
[2023-12-05] MEDS: FOLIC ACID 1 MG TABLET PO ONE (00:10)
[2023-12-05] MEDS: THIAMINE 100 MG TABLET PO STA (00:10)
--- NOTE | 2023-12-05 00:51 | XRAY Report ---
PROCEDURE: Elbow 3+V RT INDICATIONS: FALL 4FT, BRUISING TECHNIQUE: 3 views of the elbow were acquired. COMPARISON: None. FINDINGS: Bones: No acute fracture or dislocation No suspicious bony lesions. Soft tissues: Moderate effusion. No suspicious soft tissue calcifications or masses. IMPRESSION: No acute osseous abnormality. Moderate joint effusion. If there is high clinical suspicion for occult fracture recommend further evaluation with cross-sectional imaging such as CT. Reviewed by: Maegan Duong MD, PhD on 12/05/2023 12:50 AM PDT Approved by: Maegan Duong MD, PhD on 12/05/2023 12:50 AM PDT Station ID: [id number]
[2023-12-05] MEDS ORDERED: FOLIC ACID 1 MG TABLET PO SCH (09:00)
== END 2023-12-05 01:55 | disposition home or self-care (01) ==
LOC: EDUNIT# → ED 23:35
DX: S50.01XA Contusion of right elbow, initial encounter (principal); W17.89XA Other fall from one level to another, initial encounter; F17.200 Nicotine dependence, unspecified, uncomplicated
CPT/HCPCS: 73080; 99283; A9270